=== PATIENT | female | born 1990 ===

== ENCOUNTER 2020-12-27 09:24 | Outpatient (REF) | payer OTHER, SELFPAY ==
[2020-12-27 10:06] LABS: Hematocrit 40.4 % (37.0-47.0); Hemoglobin 12.7 g/dl (12.0-16.0); Mean Corpuscular HGB Conc 31.4 g/dl (31.0-35.0); Mean Corpuscular Hemoglobin 28.3 pg (27.0-33.0); Mean Corpuscular Volume 90.2 fL (80.0-98.0); Mean Platelet Volume 9.8 fL (9.4-12.3); Platelet Count 347 X10*3/uL (160-400); Red Blood Count 4.48 X10*6/uL (4.20-5.50); Red Cell Distribution Width 15.4 % (11.0-16.0); White Blood Count 6.2 X10*3/uL (4.8-10.8)
[2020-12-27 10:30] LABS: Alanine Aminotransferase 13 U/L (0-31); Albumin Level 4.3 g/dL (3.5-5.0); Alkaline Phosphatase 60 U/L (39-117); Anion Gap 10 (12-20); Aspartate Amino Transferase 12 U/L (5-31); Bilirubin Total 0.5 mg/dL (0.0-1.0); Blood Urea Nitrogen 14 mg/dL (9-16); Calcium 9.7 mg/dL (8.4-10.2); Carbon Dioxide 30 mmol/L (22-29); Chloride 104 mmol/L (96-108); Cholesterol 182 mg/dL; Estimated Glomerular Filt Rate > 60; Glucose Fasting 117 mg/dL (60-99); HDL Cholesterol 64 mg/dL; LDL Cholesterol Calculated 107 mg/dl; Potassium 4.4 mmol/L (3.3-5.1); Sodium 140 mmol/L (135-145); Total Protein 7.6 g/dL (6.5-8.0); Triglycerides 57 mg/dL
[2020-12-27 10:50] LABS: TSH reflex Free T4 1.15 uIU/mL (0.32-4.0)
[2020-12-27 11:23] LABS: Creatinine Urine 207.24 mg/dL; Microalbum/Creatinine Ratio Ur 15.4 ug/mg cr
== END 2020-12-27 09:25 | disposition home or self-care (01) ==
LOC: HO.LAB 09:24
PROVIDERS: PCP Internal Medicine; Visit Provider Physician Assistant
DX: E11.65 Type 2 diabetes mellitus with hyperglycemia (principal); I10 Essential (primary) hypertension
CPT/HCPCS: 36415; 80053; 80061; 82043; 84443; 85027

== ENCOUNTER 2021-07-04 09:14 | Outpatient (REF) | payer OTHER, SELFPAY ==
[2021-07-04 09:53] LABS: Hematocrit 39.6 % (37.0-47.0); Hemoglobin 12.6 g/dl (12.0-16.0); Mean Corpuscular HGB Conc 31.8 g/dl (31.0-35.0); Mean Corpuscular Hemoglobin 28.7 pg (27.0-33.0); Mean Corpuscular Volume 90.2 fL (80.0-98.0); Mean Platelet Volume 9.8 fL (9.4-12.3); Platelet Count 317 X10*3/uL (160-400); Red Blood Count 4.39 X10*6/uL (4.20-5.50); Red Cell Distribution Width 14.6 % (11.0-16.0); White Blood Count 6.4 X10*3/uL (4.8-10.8)
[2021-07-04 10:24] LABS: Alanine Aminotransferase 13 U/L (0-31); Albumin Level 4.1 g/dL (3.5-5.0); Alkaline Phosphatase 57 U/L (39-117); Anion Gap 11 (12-20); Aspartate Amino Transferase 12 U/L (5-31); Bilirubin Total 0.5 mg/dL (0.0-1.0); Blood Urea Nitrogen 13 mg/dL (9-16); Calcium 10.3 mg/dL (8.4-10.2); Carbon Dioxide 29 mmol/L (22-29); Chloride 105 mmol/L (96-108); Cholesterol 165 mg/dL; Estimated Glomerular Filt Rate > 60; Glucose Fasting 101 mg/dL (60-99); HDL Cholesterol 55 mg/dL; LDL Cholesterol Calculated 100 mg/dl; Potassium 4.3 mmol/L (3.3-5.1); Sodium 141 mmol/L (135-145); Total Protein 7.3 g/dL (6.5-8.0); Triglycerides 53 mg/dL
[2021-07-04 10:50] LABS: TSH reflex Free T4 1.11 uIU/mL (0.32-4.0)
[2021-07-04 10:59] LABS: Creatinine Urine 143.09 mg/dL; Microalbum/Creatinine Ratio Ur 6.2 ug/mg cr
== END 2021-07-04 09:15 | disposition home or self-care (01) ==
LOC: HO.LAB 09:14
PROVIDERS: PCP Physician Assistant; Visit Provider Physician Assistant
DX: I10 Essential (primary) hypertension (principal); E11.65 Type 2 diabetes mellitus with hyperglycemia
CPT/HCPCS: 36415; 80053; 80061; 82043; 84443; 85027

== ENCOUNTER 2022-04-08 10:24 | Outpatient (REF) | payer OTHER, SELFPAY ==
[2022-04-08 11:21] LABS: Hematocrit 40.2 % (37.0-47.0); Hemoglobin 12.8 g/dl (12.0-16.0); Mean Corpuscular HGB Conc 31.8 g/dl (31.0-35.0); Mean Corpuscular Hemoglobin 28.8 pg (27.0-33.0); Mean Corpuscular Volume 90.3 fL (80.0-98.0); Mean Platelet Volume 9.9 fL (9.4-12.3); Platelet Count 380 X10*3/uL (160-400); Red Blood Count 4.45 X10*6/uL (4.20-5.50); Red Cell Distribution Width 14.7 % (11.0-16.0); White Blood Count 7.7 X10*3/uL (4.8-10.8)
[2022-04-08 11:56] LABS: Alanine Aminotransferase 9 U/L (0-31); Albumin Level 4.4 g/dL (3.5-5.0); Alkaline Phosphatase 68 U/L (39-117); Anion Gap 14 (12-20); Aspartate Amino Transferase 10 U/L (5-31); Bilirubin Total 0.8 mg/dL (0.0-1.0); Blood Urea Nitrogen 13 mg/dL (9-16); Calcium 9.9 mg/dL (8.4-10.2); Carbon Dioxide 28 mmol/L (22-29); Chloride 104 mmol/L (96-108); Cholesterol 186 mg/dL; Estimated Glomerular Filt Rate > 60; Glucose Fasting 103 mg/dL (60-99); HDL Cholesterol 53 mg/dL; LDL Cholesterol Calculated 115 mg/dl; Potassium 4.2 mmol/L (3.3-5.1); Sodium 142 mmol/L (135-145); Total Protein 7.5 g/dL (6.5-8.0); Triglycerides 91 mg/dL
[2022-04-08 12:15] LABS: TSH reflex Free T4 0.86 uIU/mL (0.32-4.0)
== END 2022-04-08 10:25 | disposition home or self-care (01) ==
LOC: HO.LAB 10:24
PROVIDERS: PCP Physician Assistant; Visit Provider Physician Assistant
DX: E11.65 Type 2 diabetes mellitus with hyperglycemia (principal)
CPT/HCPCS: 36415; 80053; 80061; 84443; 85027

== ENCOUNTER 2022-09-29 09:59 | Outpatient (AMB) | payer OTHER, SELFPAY ==
--- NOTE | 2022-09-29 10:05 | A.OFFVIS_ITS ---
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 Capacitor Tester Required: Yes Capacitor Tester Language: Continuous Improvement Black Belt Name: april Accompanied by: Self / Same As Patient Allergies aspirin Allergy (Verified 09/29/22 10:16) closed throat and itchy eyes Medication List - Last Reconciled 09/29/22 by Lolly Potts CNM hydroxyzine HCl 10 mg PO BEDTIME 15 days losartan 50 mg PO DAILY 90 days miscellaneous medical supply (Blood Pressure Cuff) As directed pioglitazone (Actos) 30 mg PO DAILY 90 days HPI 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 HPI Details 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 she says she has been referred a few times from her primary doctor but she has been nervous about coming she had 1 gynecological exam many many years ago in [place] when she had an ovarian cyst and and then she needed surgery to remove the cyst she has slightly irregular periods she has diabetes which she says is better controlled now with the medication she is taking 1 pill a day and she is also taking medication for high blood pressure she tells me that her primary care provider told her that the most important thing she can do is lose weight and she has been working hard on it by trying to control her portions and sometimes do exercise and she has lost from about 227 lb at her highest down to 190 range today. She does keep track of her periods and she said her last menses was on August 24 the previous 1 came on July 20 and previous to that May to than previous to that May 01 and previous to that March 23 she was concerned because they were done coming on the same date every month but they are coming somewhat regularly though sometimes prolonged cycles. I did review the range of this and also she tells me on questioning that she has always had increased facial and body hair and acne. She has had diabetes for many many years. She moved here from [place] 2 years ago. She also tells me that her mother had breast cancer a but she is fine now but she was told in [place] that she should have mammograms starting at age 28 so she had 1 in [place] but when she discuss this with her primary care provider and he referred her firm mammogram here they told her that they would not do it because she did not need it here so that she would be starting them when she is age 38. So she only had the 1 mammogram in [place] that was normal she does do regular breast exams. 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 Lives with her brother and another relative. she is not sexually active and does not have a partner. [facility] Medical History (Updated 09/29/22 @ 11:36 by Lolly Potts CNM) History of breast cancer History of ovarian cyst Surgical History No pertinent past surgical history Family History Mother History of breast cancer, Onset Age: 60 History of diabetes mellitus, type II Father Family history of high cholesterol Social History Housing: House Alcohol intake: current Alcohol intake frequency: holidays/special occasions only Patient Tobacco Use Status: Never used Tobacco e-Cigarette/Vaping Use: Never Used Second Hand Smoke Exposure: No service: No Current occupational status: employed 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 (Patient has lost about 30 lb from her efforts to become healthier General: healthy appearing, comfortable, no acute distress, well developed and alert Nutritional Appearance: average body habitus and overweight Orientation/consciousness: patient oriented x3 Limitations: no limitations HEENT Head: Yes normocephalic Neck Neck: Yes normal visual inspection Chest Chest palpation & inspection: normal inspection of the chest Breast/axilla inspection: normal inspection of the breasts and normal inspection of the axillae Breast/axilla palpation: normal palpation of the breasts and normal palpation of the axillae Resp Effort & Inspection: normal respiratory effort GI Inspection: Yes normal to inspection, No Abdominal wall edema and No distended Palpation (GI): Soft to palpation and nontender Other: normal insurance agent exam. Patient told me about a bump that she feels on her left labia underneath the mucosal membrane that is been there for couple of years at least. It does not really bother her but she is curious about it. Labia are within normal limits with the exception of this small sub mucosal firm swelling that feels like a collection of varicose veins. vagina is pink and moist cervix is nulliparous pink moist midposition to posterior and uterus is small anteverted nontender adnexa nontender not enlarged good tone. mucus is white with slight curdy appearance but patient denies vaginal itching. General: Yes bladder normal to palpation External Female Exam: normal external appearance and normal appearance of the urethra Speculum Exam - Vagina: normal appearance of the vagina, normal palpation and normal vaginal discharge Speculum Exam - Cervix: normal appearance of the cervix, normal palpation and nontender Bimanual exam- vagina & uterus: normal bimanual exam, normal palpation, uterine size normal, bladder normal to palpation, consistency normal, normal palpation, uterine mobility normal, uterine shape normal, No Cervical tenderness present, non-tender and no cervical motion tenderness Bimanual Exam- Adnexa, other: normal adnexae, no masses, normal and No adnexal tenderness Neuro General: patient oriented x3 Assessment & Plan Assessment & Plan (1) Family history of breast cancer: Code(s): Z80.3 - Family history of malignant neoplasm of breast (2) Family history of breast cancer in first degree relative: Code(s): Z80.3 - Family history of malignant neoplasm of breast (3) Cervical cancer screening: Comment: 1st Pap in Located within [facility] done 09/29/2022. Code(s): Z12.4 - Encounter for screening for malignant neoplasm of cervix (4) Type 2 diabetes mellitus: Code(s): E11.9 - Type 2 diabetes mellitus without complications Qualifiers: Diabetes mellitus skilled nursing insulin use: without petroleum terminal plant operator use Diabetes mellitus complication status: with hyperglycemia Qualified Code(s): E11.65 - Type 2 diabetes mellitus with hyperglycemia (5) HTN (hypertension): Code(s): I10 - Essential (primary) hypertension Qualifiers: Hypertension type: essential hypertension Qualified Code(s): I10 - Essential (primary) hypertension (6) Female hirsutism: Code(s): L68.0 - Hirsutism (7) History of ovarian cyst: Code(s): Z87.42 - Personal history of other diseases of the female genital tract Plan -----Discussed in this visit the following: healthy balanced diet, regular and consistent exercise, getting recommended health screens, doing the best she can for her particular health concerns, kegel exercises, pap smear screening and followup recommendations, mammography screening and SBE, normal changes in cycles in her life stage--- .Discussed in general terms the challenges of obesity and challenges for her health and efforts she is engaging in to manage this including dietary changes water intake attention to sleep inclusion of a regular exercise have it and dealing with the may need stressors of life that can contribute to obesity in general. Encouraged her to continue in all have her best efforts ---Discussed PCOS in general and specifically about the interplay of the abnormal hormonal milieu related to being overweight, with the elevations of many hormone levels, including testosterone and estrogen, as well as others that contribute to cycles that are anovulatory and therefore prolonged, and when periods do come they come very heavy, and can contribute to lots of cramping, with passage of clots and anemia. Discussed the common symptoms related to the elvated hormonal levels, including increased facial hair, male pattern hair thinning, acne, and increased central abdominal girth. Discussed the interplay with difficulty getting when desired, but still possible, and therefore the need to contracept as appropriate and when needed. Discussed the role of weight loss as the primary, most important, and most likely to succeed, intervention, in achieving healthier status as regards PCOS, and ovulatory regular cycles. Additionally the very important relationship to elevated insulin levels, and blood sugars, and diabetes as well as other metabolic syndromes related to this was discussed. discussed that since she already has diabetes and hypertension for many years and her history of ovarian cyst and her is symptoms of increased body hair and acne and the obesity she probably has PCOS but she is doing the most important thing she can do by managing her medical conditions really well and working very hard and successfully and carefully by changing her diet and losing the weight and that that is that the absolute best thing she can do for her health long- term. Discussed also with the issue of breast cancer screening she says her primary care provider did already try to send her for mammogram here because of her maternal history in because she was told in [place] that she had to start scans at age 28. But she was told at the [facility] that it would not be done here until later. So since referral for that has already occurred I will not repeat that effort. Also discussed that her periods may become more regular as she continues to lose the weight. Also discussed that if she should start to think about becoming sexually active or become in a relationship with someone that 1st of all condoms are the best thing to help protect from infection but also if she wanted to discuss control methods she could be seen at any time. Orders: Orders Bacterial Vaginosis Panel Today Z12.4 - Encounter for screening for malignant neoplasm of cervix CT NG by PCR Today Z00.00 - Encounter for general adult medical examination without abnormal findings Pap Smear Today Z12.4 - Encounter for screening for malignant neoplasm of cervix Coding Level of Care Code New Pt Prev Care 18-39yr([id number] Diagnoses Family history of breast cancer Z80.3 Family history of breast cancer in first degree relative Z80.3 Cervical cancer screening Z12.4 Type 2 diabetes mellitus E11.65 Diabetes mellitus skilled nursing insulin use: without skilled nursing use Diabetes mellitus complication status: with hyperglycemia HTN (hypertension) I10 Hypertension type: essential hypertension Female hirsutism L68.0 History of ovarian cyst Z87.42
[2022-09-29 10:14] VITALS: BP 138/84; BMI 27.1
== END 2022-09-29 11:25 | disposition home or self-care (01) ==
LOC: HO.HWS 09:59
PROVIDERS: PCP Physician Assistant; Visit Provider Advanced Practice Midwife
DX: Z01.419 Encounter for gynecological examination (general) (routine) without abnormal findings (principal); Z80.3 Family history of malignant neoplasm of breast; E11.65 Type 2 diabetes mellitus with hyperglycemia; I10 Essential (primary) hypertension; L68.0 Hirsutism; Z87.42 Personal history of other diseases of the female genital tract
CPT/HCPCS: 99385

== ENCOUNTER 2022-09-29 09:59 | Outpatient (REF) | payer OTHER, SELFPAY ==
[2022-09-30 04:24] LABS: CT PCR NOT DETECTED (Not Detect.); NG PCR NOT DETECTED (Not Detect.)
[2022-09-30 12:50] LABS: BV Int Neg Control Negative (Negative); BV Int Pos Control Positive (Positive)
[2022-10-10 04:38] LABS: HPV 16 RNA NOT DETECTED (NOT DETECTED); HPV mRNA E6/E7 rflx Detected (Not Detected)
== END 2022-09-29 10:00 | disposition home or self-care (01) ==
LOC: HO.LNP 09:59
PROVIDERS: PCP Physician Assistant; Visit Provider Advanced Practice Midwife
DX: Z01.419 Encounter for gynecological examination (general) (routine) without abnormal findings (principal); E11.65 Type 2 diabetes mellitus with hyperglycemia; I10 Essential (primary) hypertension; L68.0 Hirsutism; Z87.42 Personal history of other diseases of the female genital tract; Z79.899 Other long term (current) drug therapy; Z80.3 Family history of malignant neoplasm of breast
CPT/HCPCS: 0353U; 87480; 87510; 87624; 87625; 87660; 88142

== ENCOUNTER 2022-11-06 09:55 | Outpatient (AMB) | payer OTHER, SELFPAY ==
[2022-11-06 10:12] VITALS: BP 138/90; PULSE 88; RESP 16; O2SAT 98; BMI 26.3
--- NOTE | 2022-11-06 10:12 | A.OFFPC_ITS ---
Vital Signs 11/06/22 10:12 Height 5 ft 11 in Weight 188 lb 4 oz BMI 26.3 BP 138/90 H Blood Pressure Location Lt brachial Position Sitting Respiration 16 Pulse 88 Pulse Source Pulse Oximeter Pulse Oximetry (%) 98 Oxygen Delivery Method Room Air Intake Visit Reasons: f/u dm/ HTN Intake Note: Patient is here to follow up on DMII and HTN. Door To Door Selling Distributor Required: Yes Door To Door Selling Distributor Language: Wallisian Accompanied by: Self / Same As Patient Allergies aspirin Allergy (Verified 11/06/22 10:33) closed throat and itchy eyes Medication List - Last Reconciled 11/06/22 by Mario Mack PA-C hydroxyzine HCl 10 mg PO BEDTIME 15 days losartan 25 mg PO DAILY miscellaneous medical supply (Blood Pressure Cuff) As directed pioglitazone (Actos) 30 mg PO DAILY 90 days Tobacco use date assessed: 05/04/22 Dental Screening Dental Screen Date: 11/06/22 Did you have a dental visit in the last 12 months?: Yes Did you have a dental problem in the last 6 months where you did not have access to dental care?: No Was dental information given to patient?: Patient has dentist HPI f/u dm/ HTN HPI Details Patient is a 32-y ear-old female her e today for a foll ow-up visitm, . .? Patient is Spanis h-speaking only to which we have use d a remote silver buffer josiah renteria this visit. ? Alexis westfall has a past m edical history sig nificant for to 2 diabetes ,HTN,? fa sal history of br east cancer. .. DMII:? Does check her Blood sugar at home seldomly and report blood suga rs 110s to 120s.? Most recent fastin g blood sugar acce ptable Does see an eye doctor annual ly. We have noted more weight loss. Today's A1c of 5. 9 from 6.2. Will continue current d ose of Actos 30 mg . .. HTN:? Blood pressure slightly elevated today in office.? Denies an y headaches, chest discomfort, heada ches or vision iss ues. Patient hattie snow on losartan 5 0 mg. Does not ch nicolasa her blood pres sures at home. Ad jessica did start mauro cking her blood pr essures at home to ensure normal ezekiel dings. .. .. F amily history pop st cancer:? She re ports her mother w as diagnosed of br east cancer those unclear what age s he was diagnosed.? She reports getti ng a mammogram whi [place] in [place] which was negative .? Unclear at what age her mother wa s diagnosed with b reast cancer .. 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 Girish Ibrahim, Patito Beasley, Mike Monroy and colleagues, with an educational miguel angel from [employer]. Review of Systems Const Denies headache(s) Eyes Denies loss of vision ENT Denies vertigo, Denies dizziness, Denies headache(s) and Denies sore throat Card Denies chest pain, Denies leg edema and Denies lightheadedness Resp Denies cough, Denies hemoptysis and Denies wheezing GI Denies abdominal pain, Denies melena, Denies constipation, Denies diarrhea and Denies vomiting Denies urinary frequency, Denies dysuria and Denies urinary urgency Musc Denies arthralgias, Denies joint swelling, Denies numbness and Denies tingling Neuro Denies Abnormal speech present, Denies behavioral changes, Denies vertigo, Denies dizziness, Denies headache(s), Denies loss of vision, Denies memory loss, Denies numbness and Denies tingling Psych Denies anxiety, Denies behavioral changes, Denies depression, Denies memory loss and Denies panic attacks Jono/Lymph Denies easy bleeding and Denies easy bruising Aller/Immun Denies wheezing Physical exam (Primary Care) Vital Signs: Last Vital Signs Pulse 88 11/06/22 10:12 Resp 16 11/06/22 10:12 BP 138/90 H 11/06/22 10:12 Pulse Ox 98 11/06/22 10:12 Oxygen Delivery Method Room Air 11/06/22 10:12 BMI result Body Mass Index 26.3 Tobacco/Smoking Status: Tobacco use Status Tobacco use date assessed 05/04/22 11/06/22 10:16 Patient Tobacco Use Status Never used Tobacco 11/06/22 10:16 e-Cigarette/Vaping Use Never Used 11/06/22 10:16 Thrive Assessment: Date of Thrive Assessment Date Thrive assessed 05/04/22 11/06/22 10:16 Const General: healthy appearing, no acute distress, alert and awake Nutritional Appearance: well nourished Orientation/consciousness: oriented to person, oriented to place and oriented to time HENMT Ears: TM's normal bilaterally General nose exam: Normal nasal mucous membranes and turbinates present Eyes Conjunctivae: conjunctivae normal Sclerae: sclerae normal Pupils: Equal, round and reactive pupils present Neck Neck: Yes no lymphadenopathy and Yes no JVD Thyroid: Thyroid normal Carotids: no bruits Resp Effort & Inspection: normal respiratory effort and not tachypneic Auscultation: no crackles, no rales, no rhonchi and no wheezes Cardio Rate: regular rate Rhythm: regular rhythm Heart sounds: no murmurs and normal S1 and S2 GI Palpation (GI): Soft to palpation, nontender, no hepatomegaly and no splenomegaly Auscultation: normal bowel sounds Skin General skin exam: no rashes or lesions noted and dry skin Neuro General: oriented to person, oriented to place and oriented to time Cranial nerves: Yes Equal, round and reactive pupils present Speech: No Abnormal speech present Gait exam (Neuro): Normal gait present Motor exam (neuro): no tremor noted Extrem Right upper extremity: full ROM Left upper extremity: full ROM Right lower extremity: full ROM; no edema Left lower extremity: full ROM; no edema Psych Mental Status: mental status grossly normal Speech and movement: Normal speech and movement present Affect: normal affect Attitude: cooperative Thought process: Normal thought process present Results AMB Hemoglobin A1c AMB Hemoglobin A1c 5.9 % Last Edit by LACEY Maravilla on 11/06/22 10:37 Assessment and Plan Assessment & Plan (1) HTN (hypertension): Code(s): I10 - Essential (primary) hypertension Qualifiers: Hypertension type: essential hypertension Qualified Code(s): I10 - Essential (primary) hypertension Plan: Blood pressure today in office slightly elevated. Patient continues on losartan 50 mg. Otherwise is asymptomatic without headaches, chest discomforts or syncopal episodes. Advised on monitoring blood pressure at home as has suspect there is a white coat hypertension element tear. Goal blood pressure to be below 140/90 (2) Type 2 diabetes mellitus: Code(s): E11.9 - Type 2 diabetes mellitus without complications Qualifiers: Diabetes mellitus complication status: with hyperglycemia Diabetes mellitus jail insulin use: without termite helper use Qualified Code(s): E11.65 - Type 2 diabetes mellitus with hyperglycemia Plan: Patient's type 2 diabetes well controlled with current dose of Actos at 30 mg. Will continue current dose A1c to remain below 6.5 Orders: Orders AMB Hemoglobin A1c Today E11.9 - Type 2 diabetes mellitus without complications Medications: New losartan 25 mg PO DAILY 90 days 90 tabs 2RF I10 - Essential (primary) hyper tension Refilled pioglitazone (Actos) 30 mg PO DAILY 90 days 90 tabs 2RF E11.65 - Type 2 diabetes mellitus with hyperglycemia Coding Level of Care Code Est Pt Level 4 (59011) Diagnoses Essential hypertension I10 Hypertension type: essential hypertension Type 2 diabetes mellitus with hyperglycemia, without long-term current use of insulin E11.65 Diabetes mellitus complication status: with hyperglycemia Diabetes mellitus termite helper insulin use: without jail use
== END 2022-11-06 10:46 | disposition home or self-care (01) ==
PROVIDERS: PCP Physician Assistant; Visit Provider Physician Assistant
DX: I10 Essential (primary) hypertension (principal); E11.65 Type 2 diabetes mellitus with hyperglycemia; E11.9 Type 2 diabetes mellitus without complications
CPT/HCPCS: 83036; 99214

== ENCOUNTER 2022-11-06 10:54 | Outpatient (REF) | payer OTHER, SELFPAY ==
[2022-11-06 11:54] LABS: Hemoglobin 13.1 g/dl (12.0-16.0); Mean Corpuscular HGB Conc 32.8 g/dl (31.0-35.0); Mean Corpuscular Hemoglobin 29.2 pg (27.0-33.0); Mean Corpuscular Volume 89.3 fL (80.0-98.0); Mean Platelet Volume 9.7 fL (9.4-12.3); Platelet Count 337 X10*3/uL (160-400); Red Blood Count 4.48 X10*6/uL (4.20-5.50); Red Cell Distribution Width 14.9 % (11.0-16.0); White Blood Count 6.8 X10*3/uL (4.8-10.8)
[2022-11-06 12:09] LABS: Estimated Average Glucose 108 mg/dL; Hemoglobin A1c % 5.4 % (<6.0)
[2022-11-06 12:30] LABS: Alanine Aminotransferase 6 U/L (0-31); Albumin Level 4.3 g/dL (3.5-5.0); Alkaline Phosphatase 51 U/L (39-117); Anion Gap 10 (12-20); Aspartate Amino Transferase 10 U/L (5-31); Bilirubin Total 0.9 mg/dL (0.0-1.0); Blood Urea Nitrogen 13 mg/dL (9-16); Calcium 9.8 mg/dL (8.4-10.2); Carbon Dioxide 27 mmol/L (22-29); Chloride 108 mmol/L (96-108); Cholesterol 167 mg/dL (<200); Estimated Glomerular Filt Rate > 60; Glucose Fasting 92 mg/dL (60-99); HDL Cholesterol 55 mg/dL (>40); LDL Cholesterol Calculated 100 mg/dL (<100); Potassium 3.9 mmol/L (3.3-5.1); Sodium 141 mmol/L (135-145); Total Protein 7.9 g/dL (6.5-8.0); Triglycerides 64 mg/dL (<150)
[2022-11-06 12:47] LABS: TSH reflex Free T4 0.72 uIU/mL (0.32-4.0)
[2022-11-06 14:47] LABS: Microalbum/Creatinine Ratio Ur 4.9 ug/mg cr (<30)
== END 2022-11-06 10:55 | disposition home or self-care (01) ==
LOC: HO.LAB 10:54
PROVIDERS: PCP Physician Assistant; Visit Provider Physician Assistant
DX: E11.65 Type 2 diabetes mellitus with hyperglycemia (principal); Z13.220 Encounter for screening for lipoid disorders; Z13.29 Encounter for screening for other suspected endocrine disorder
CPT/HCPCS: 36415; 80053; 80061; 82043; 82570; 83036; 84443; 85027

== ENCOUNTER 2022-12-11 11:39 | Outpatient (AMB) | payer OTHER, SELFPAY ==
--- NOTE | 2022-12-11 11:45 | A.OFFVIS_ITS ---
Intake Vital Signs 12/11/22 11:54 Height 5 ft 11 in Weight 187 lb 6.287 oz BMI 26.1 BP 130/84 Intake Visit Reasons: COLPO Allergies aspirin Allergy (Verified 11/06/22 10:33) closed throat and itchy eyes PFSH Medical History History of breast cancer History of ovarian cyst Surgical History No pertinent past surgical history Family History Mother History of breast cancer, Onset Age: 60 History of diabetes mellitus, type II Father Family history of high cholesterol Social History Housing: House Alcohol intake: current Alcohol intake frequency: holidays/special occasions only Patient Tobacco Use Status: Never used Tobacco e-Cigarette/Vaping Use: Never Used Second Hand Smoke Exposure: No service: No Current occupational status: employed 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 Cognitive needs: No Hearing needs: No Vision needs: Yes (glasses) Office Procedures Colposcopy Before the procedure was started discussed with the patient the procedure, alternatives & all the risks associated with the procedure (bleeding, infection, injury to vagina, bladder, vessels, possible need for transfusion with all its risks) then patient signed the consent Pap smear = LSIL/HPV pause Urine test done in the office was negative Speculum inserted, acetic acid used Colposcopy done Transformation zone seen, acetowhite lesions identified at 4+9+12+1 o?clock, cervical biopsies taken from 4+9+12+1 o?clock, ECC done afterwards. Vaginoscopy of the upper vagina showed no evidence of any aceto-white lesions Monsel solution used for hemostasis. The patient tolerated well . At the end the patient was instructed to call if temp>100.4, abdominal pain, n/v, bleeding; The patient was given the following instructions: nothing per vagina, no intercourse or bath tub use. All questions answered the patient verba lized understanding. Instructed the patient to make an appointment in 2 weeks for follow-up This note was generated with a voice recognition program. Some errors may have been overlooked during the review of this note. Sometimes these errors may affect the content or meaning of a given sentence. [id number] of cervix including upper vagina with biopsy and ECC Procedure code (CPT) selection complete Assessment & Plan Assessment & Plan (1) Dysplasia of cervix, low grade (GINO 1): Comment: HPV pause Code(s): N87.0 - Mild cervical dysplasia Orders: Orders AMB Colposcopy Today N87.0 - Mild cervical dysplasia Coding Level of Care Code Procedure Only Diagnoses Dysplasia of cervix, low grade (GINO 1) N87.0 CPT Codes Colposcopy - CPT: 76105-Vdlpvnifz of cervix including upper vagina with biopsy and ECC ([id number])
[2022-12-11 11:54] VITALS: BP 130/84; BMI 26.1
== END 2022-12-11 13:17 | disposition home or self-care (01) ==
LOC: HO.HWS 11:39
PROVIDERS: PCP Physician Assistant; Visit Provider Obstetrics & Gynecology
DX: N87.0 Mild cervical dysplasia (principal); Z32.02 Encounter for pregnancy test, result negative
CPT/HCPCS: 57454

== ENCOUNTER 2022-12-11 11:39 | Outpatient (REF) | payer OTHER, SELFPAY | END 2022-12-11 11:40 | disposition home or self-care (01) | LOC: HO.LNP 11:39 | PROVIDERS: PCP Physician Assistant; Visit Provider Obstetrics & Gynecology | DX: N87.0 Mild cervical dysplasia (principal) | CPT/HCPCS: 57454; 81025; 88305 ==

== ENCOUNTER 2022-12-22 10:27 | Outpatient (AMB) | payer OTHER, SELFPAY ==
--- NOTE | 2022-12-22 10:30 | MHC.PC.OV ---
Vital Signs 12/22/22 10:31 Height 5 ft 11 in Weight 183 lb 4 oz BMI 25.6 BP 126/66 Blood Pressure Location Lt brachial Position Sitting Intake Visit Reasons: HDF ~ Post hospital discharge FU Intake Note: Patient is here for hospital discharge follow up. Patient was discharged from [facility] on 11/18 to 11/21. Informed she pasted out on 11/30/22 at home but did not go to ER. Recycling Program Manager Required: Yes Recycling Program Manager Language: Senior Php Web Developer Name: Varun ([id number]) Information Interpreted: non-clinical & clinical Java Sql Developer: Not Required per policy Accompanied by: Self / Same As Patient Allergies ketorolac Allergy (Intermediate, Verified 12/22/22 10:37) Anaphylaxis aspirin Allergy (Verified 12/22/22 10:37) closed throat and itchy eyes Tobacco use date assessed: 12/22/22 Dental Screening Dental Screen Date: 12/22/22 Did you have a dental visit in the last 12 months?: Yes Did you have a dental problem in the last 6 months where you did not have access to dental care?: No Was dental information given to patient?: Patient has dentist HPI HPI Comments History of Present Illness Details 28-year-old female past medical history significant for hypertension, type 2 diabetes mellitus in the left knee pain. Patient of Ayden Mack PA-C. Patient presents today for hospital discharge follow-up from [facility] for subarachnoid bleed discharged on 11/21/2022. Patient had been standing in the elevator and had weakness bystanders told her that she had passed out and hit her head. Denied any prolonged confusion patient underwent extensive imaging in the emergency department CT of cervical, lumbar head, maxillofacial. Was found to have tiny parenchymal mole or subarachnoid bleed; likely subarachnoid bleed per radiologist. Patient was evaluated by Trauma surgery recommended a CTA to rule out aneurysmal disease. CTA of the head and neck showed no acute intracranial large vessel occlusion, no hemodynamically significant stenosis of the extracranial internal carotid or vertebral arteries.Trauma surgery signed off following this. Echocardiogram was obtained showed LV EF of 55-60% no valvular abnormalities and no regional wall motion abnormalities. Patient presents today with stating she had a recurrent syncopal episode on 11/30/2022 states she was at her home sitting down watching TV and she felt like her heart was racing and she felt shaky and passed out. Patient denies any chest pain. Patient denies any headaches, vision changes, denies any low blood sugar reading. Patient reports she did check her blood pressure at the time of feeling fatigued and passing out when it was 115. 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 Girish Ibrahim, Patito Beasley, Mike Monroy and colleagues, with an educational miguel angel from [employer]. Review of Systems Const Denies chills, Denies fatigue, Denies fever(s) and Denies poor appetite Eyes Denies no additional complaints ENT Reports Normal hearing present Card Denies chest pain, Denies syncope, Reports rapid heart rate, Denies dyspnea and Reports other (syncope) Resp Denies cough and Denies dyspnea GI Denies change in stool character, Denies constipation, Denies diarrhea, Denies nausea and Denies vomiting Denies urinary frequency, Denies dysuria and Denies urinary urgency Neuro Reports Normal hearing present, Denies confusion and Denies syncope Psych Denies confusion Endo Denies fatigue Physical exam (Primary Care) Vital Signs: Last Vital Signs BP 126/66 12/22/22 10:31 BMI result Body Mass Index 25.6 Tobacco/Smoking Status: Tobacco use Status Tobacco use date assessed 12/22/22 12/22/22 10:41 Patient Tobacco Use Status Never used Tobacco 12/22/22 10:30 e-Cigarette/Vaping Use Never Used 12/22/22 10:30 Thrive Assessment: Date of Thrive Assessment Date Thrive assessed 05/04/22 12/22/22 10:30 Const General: No confusion Orientation/consciousness: No confusion HENMT Head: Yes normocephalic and Yes atraumatic Eyes Conjunctivae: conjunctivae normal Chest Chest palpation & inspection: normal inspection of the chest Resp Effort & Inspection: normal respiratory effort Auscultation: clear to auscultation bilaterally, no crackles, no rhonchi and no wheezes Cardio Rate: regular rate Rhythm: regular rhythm Heart sounds: S1 normal heart sound present and S2 normal heart sound present GI Inspection: Yes normal to inspection General: Yes no CVA tenderness Back/Spine/Pelvis Back: no CVA tenderness Neuro General: No confusion Cranial nerves: Yes Normal hearing present Extrem General: No edema Office Procedures Flu Questionnaire Does the patient have a severe egg allergy?: No Does the patient have severe life threatening allergies?: No Does the patient have a fever or illness today?: No Has the patient ever had Guillain-[place] Syndrome?: No Has the patient ever had any past reaction to a flu shot?: No Immunizations flu vacc [id number] 6mos up(PF) 60 mcg(15 mcgx4)/0.5 mL IM syringe Performing Provider: OSCAR Bassett Performing Location: [facility] Administered by: MEGHNA Falcon on 12/22/22 10:48 Dose Route Admin Location Dispensed Lot Number Expiration Date [facility] [employer] Lead 0.5 mL IM Left Deltoid 0.5 mL [id number] 08/26/23 [id number] [employer] VIS Given Date VIS Provided VIS Publication Date 12/22/22 Single Vaccine 20 Eligibility Eligibility Date Funding Source Not [facility] Eligible 12/22/22 Private Assessment and Plan Assessment & Plan (1) Type 2 diabetes mellitus: Code(s): E11.9 - Type 2 diabetes mellitus without complications Qualifiers: Diabetes mellitus complication status: with hyperglycemia Diabetes mellitus director of critical care insulin use: without retirement use Qualified Code(s): E11.65 - Type 2 diabetes mellitus with hyperglycemia Plan: Continue on actos Hemoglobin A1c ordered. Patient educated to decrease the amount of carbohydrate intake such as pasta, bread, rice and potatoes are all sugar in addition to the sweet stuff. Remember that fruits are good but they also have sugar. (2) Syncope: Code(s): R55 - Syncope and collapse Plan: Given patient is experiencing recurrent episodes of syncope following heart racing 3 day Holter monitor ordered and referral inter to Cardiology for further evaluation. (3) Palpitations: Code(s): R00.2 - Palpitations Plan: See syncope plan. (4) HTN (hypertension): Code(s): I10 - Essential (primary) hypertension Qualifiers: Hypertension type: essential hypertension Qualified Code(s): I10 - Essential (primary) hypertension Plan: Continue on losartan 25 mg daily. Plan Follow-up in 2 months. Orders: Orders Influenza [id number] Immunization Today Z23 - Encounter for immunization Hemoglobin A1c Today E11.9 - Type 2 diabetes mellitus without complications ECG 3 day holter monitor Today R00.2 - Palpitations, R55 - Syncope and collapse Complete Blood Count Auto Diff Today Z13.0 - Encounter for screening for diseases of the blood and blood-forming organs and certain disorders involving the immune mechanism Comprehensive Met. Panel Today E11.9 - Type 2 diabetes mellitus without complications Referrals Cardiology Referral R00.2 - Palpitations, R55 - Syncope and collapse Coding Level of Care Code Est Pt Level 4 (49760) Diagnoses Type 2 diabetes mellitus with hyperglycemia, without long-term current use of insulin E11.65 Diabetes mellitus complication status: with hyperglycemia Diabetes mellitus director of critical care insulin use: without director of critical care use Syncope R55 Palpitations R00.2 Essential hypertension I10 Hypertension type: essential hypertension
[2022-12-22 10:31] VITALS: BP 126/66; BMI 25.6
== END 2022-12-22 11:07 | disposition home or self-care (01) ==
PROVIDERS: PCP Physician Assistant; Visit Provider Nurse Practitioner Family
DX: E11.65 Type 2 diabetes mellitus with hyperglycemia (principal); R55 Syncope and collapse; R00.2 Palpitations; I10 Essential (primary) hypertension; Z23 Encounter for immunization
CPT/HCPCS: 90471; 90686; 99214

== ENCOUNTER 2023-01-10 11:19 | Outpatient (AMB) | payer OTHER, SELFPAY ==
--- NOTE | 2023-01-10 11:20 | MHC.OFFVIS ---
Intake Vital Signs 01/10/23 11:23 Height 5 ft 11 in Weight 182 lb 15.739 oz BMI 25.5 BP 120/74 Intake Visit Reasons: colpo results Ammunition Storekeeper Required: Yes Ammunition Storekeeper Language: Cut Plug Packer Name: Krystina COFFMAN Information Interpreted: non-clinical & clinical Accompanied by: Self / Same As Patient Allergies ketorolac Allergy (Intermediate, Verified 01/10/23 11:24) Anaphylaxis aspirin Allergy (Verified 01/10/23 11:24) closed throat and itchy eyes Is last menstrual period known: Yes Last menstrual period: 12/21/22 HPI HPI Comments History of Present Illness Details Presenting post colpo for follow-up. The patient is doing well complaining of heavy menstrual cycles associated with pelvic cramping for the last 3 months. The pathology showed the following: A. Endocervix, curettage: Fragments of endocervical glands and squamous mucosa within normal limits; negative for squamous intraepithelial lesion. B. Cervix, 1:00 o'clock, biopsy: Squamous mucosa within normal limits; no endocervical component seen; negative for squamous intraepithelial lesion. C. Cervix, 4:00 o'clock, biopsy: Chronic cervicitis with reactive epithelial changes; negative for squamous intraepithelial lesion. D. Cervix, 9:00 o'clock, biopsy: Squamocolumnar mucosa within normal limits; negative for squamous intraepithelial lesion. E. Cervix, 12:00 o'clock, biopsy: Chronic cervicitis; negative for squamous intraepithelial lesion [facility] Medical History History of breast cancer History of ovarian cyst Surgical History No pertinent past surgical history Family History Mother History of breast cancer, Onset Age: 60 History of diabetes mellitus, type II Father Family history of high cholesterol Social History Housing: House Alcohol intake: current Alcohol intake frequency: holidays/special occasions only Patient Tobacco Use Status: Never used Tobacco e-Cigarette/Vaping Use: Never Used Second Hand Smoke Exposure: No service: No Current occupational status: employed 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 Cognitive needs: No Hearing needs: No Vision needs: Yes (glasses) Female Reproductive History Menstrual Date of last menstrual period: 12/21/22 Review of Systems Const All systems reviewed & are unremarkable except as noted in HPI and below Reports as per HPI and Reports no additional complaints GI Reports no additional complaints Reports no additional complaints Physical Exam Vital Signs: Last Vital Signs BP 120/74 01/10/23 11:23 BMI result Body Mass Index 25.5 Assessment & Plan Assessment & Plan (1) Dysplasia of cervix, low grade (GINO 1): Comment: HPV positive Colpo biopsy ECC negative Code(s): N87.0 - Mild cervical dysplasia Plan: Discussed with the patient the pathology results of the colposcopy biopsies & endocervical curettage ( negative). Discussed with the patient the sensitivity specificity, positive and negative predictive value in detecting cervical cancer in addition discussed the regression, persistence and progression rates. Recommended co-testing in 12 months, if cytology and or HPV are abnormal will proceed was colposcopy biopsy and endocervical curettage. Instructions given to the patient to schedule a co test appointment in 1 year. All questions answered the patient verbalized understanding. (2) Abnormal uterine bleeding (AUB): Code(s): N93.9 - Abnormal uterine and vaginal bleeding, unspecified Plan: UPT done in the office was negative. GC and chlamydia taken CBC, TSH, HCG, prolactin, and pelvic ultrasound ordered. Discussed with the patient the different causes of abnormal bleeding including thyroid disorders, uterine and ovarian pathology, endometrial hyperplasia, carcinoma and other potential causes. Discussed with the patient the work up including CBC (to r/o anemia), TSH, pelvic Ultrasound, endometrial biopsy to r/o endometrial pathology. All questions answered and the patient verbalized understanding. Instructed the patient to schedule an appointment for an endometrial biopsy in 2 weeks. Orders: Orders TSH reflex Free T4 Today N93.9 - Abnormal uterine and vaginal bleeding, unspecified HCG Quantitative Today N93.9 - Abnormal uterine and vaginal bleeding, unspecified Complete Blood Count no Diff Today N93.9 - Abnormal uterine and vaginal bleeding, unspecified Prolactin Today N93.9 - Abnormal uterine and vaginal bleeding, unspecified US pelvic and transvaginal Today N93.9 - Abnormal uterine and vaginal bleeding, unspecified Coding Level of Care Code Est Pt Level 3 (06241) Diagnoses Dysplasia of cervix, low grade (GINO 1) N87.0 Abnormal uterine bleeding (AUB) N93.9
[2023-01-10 11:23] VITALS: BP 120/74; BMI 25.5
== END 2023-01-10 11:38 | disposition home or self-care (01) ==
LOC: HO.HWS 11:19
PROVIDERS: PCP Physician Assistant; Visit Provider Obstetrics & Gynecology
DX: N87.0 Mild cervical dysplasia (principal); N93.9 Abnormal uterine and vaginal bleeding, unspecified; Z32.02 Encounter for pregnancy test, result negative
CPT/HCPCS: 99213

== ENCOUNTER 2023-01-10 11:19 | Outpatient (REF) | payer OTHER, SELFPAY | END 2023-01-10 11:20 | disposition home or self-care (01) | LOC: HO.LNP 11:19 | PROVIDERS: PCP Physician Assistant; Visit Provider Obstetrics & Gynecology | DX: N87.0 Mild cervical dysplasia (principal); N93.9 Abnormal uterine and vaginal bleeding, unspecified; Z71.2 Person consulting for explanation of examination or test findings | CPT/HCPCS: 81025; 99212 ==

== ENCOUNTER 2023-01-10 12:01 | Outpatient (REF) | payer OTHER, SELFPAY ==
[2023-01-10 13:40] LABS: Hematocrit 39.3 % (37.0-47.0); Hemoglobin 12.6 g/dl (12.0-16.0); Mean Corpuscular HGB Conc 32.1 g/dl (31.0-35.0); Mean Corpuscular Hemoglobin 29.2 pg (27.0-33.0); Mean Platelet Volume 10.1 fL (9.4-12.3); Platelet Count 334 X10*3/uL (160-400); Red Blood Count 4.32 X10*6/uL (4.20-5.50); White Blood Count 6.7 X10*3/uL (4.8-10.8)
[2023-01-10 15:16] LABS: HCG Quantitative < 2 mIU/mL
[2023-01-10 16:30] LABS: CT PCR NOT DETECTED (Not Detect.); NG PCR NOT DETECTED (Not Detect.)
[2023-01-12 03:33] LABS: Prolactin 6.8 ng/mL
== END 2023-01-10 12:02 | disposition home or self-care (01) ==
LOC: HO.LAB 12:01
PROVIDERS: PCP Physician Assistant; Visit Provider Obstetrics & Gynecology
DX: N93.9 Abnormal uterine and vaginal bleeding, unspecified (principal)
CPT/HCPCS: 0353U; 36415; 84146; 84443; 84702; 85027

== ENCOUNTER → 2023-01-12 11:23 | Outpatient (REF) | payer OTHER, SELFPAY ==
--- NOTE | 2023-01-12 11:35 | HM_ITS ---
Conclusion: 1. Patient was monitored for total period of 3 days 2. Baseline was normal sinus rhythm with average heart of 84 beats per minute 3. No significant pauses or arrhythmias noted 4. Patient reported to symptoms of shortness of breath correlating with normal sinus rhythm MTDD
== END ==
LOC: HO.CARD 11:23
PROVIDERS: PCP Physician Assistant; Visit Provider Nurse Practitioner Family
DX: R00.2 Palpitations (principal); R55 Syncope and collapse
CPT/HCPCS: 93242

== ENCOUNTER → 2023-01-12 11:35 | Outpatient (BNV) | payer OTHER, SELFPAY | PROVIDERS: PCP Physician Assistant; Visit Provider Internal Medicine Cardiovascular Disease | DX: R00.2 Palpitations (principal) | CPT/HCPCS: 93244 ==

== ENCOUNTER 2023-02-02 14:11 | Outpatient (REF) | payer OTHER, SELFPAY ==
--- NOTE | ~2023-02-02 | US_ITS ---
EXAM: Pelvic Ultrasound CLINICAL INDICATION: Abnormal bleeding COMPARISON: None available. TECHNIQUE: The pelvis was evaluated using transabdominal and transvaginal imaging. FINDINGS: The uterus measures 8.0 x 4.2 x 5.2 cm in longitudinal by AP by transverse dimension. The endometrial stripe measures 1.3 cm. There is an arcuate type uterus. Several prominent nabothian cysts are noted within the cervix. The left ovary measures approximately 3.9 x 3.4 x 3.5 cm and contains an approximately 2 cm cystic structure felt to represent a degenerating corpus luteum. The right ovary measures approximately 4.0 x 2.1 x 2.4 cm and is normal. There is a small amount of free fluid in the pelvis. US/US pelvic and transvaginal IMPRESSION: 1. Endometrial stripe measures 1.3 cm in thickness. Correlation with menstrual cycle recommended. 2. Small amount of free pelvic fluid.
== END 2023-02-02 14:12 | disposition home or self-care (01) ==
LOC: HO.US 14:11
PROVIDERS: PCP Physician Assistant; Visit Provider Obstetrics & Gynecology
DX: N93.9 Abnormal uterine and vaginal bleeding, unspecified (principal)
CPT/HCPCS: 76830; 76856

== ENCOUNTER 2023-02-13 12:53 | Outpatient (AMB) | payer OTHER, SELFPAY ==
[2023-02-13 12:56] VITALS: BP 152/90; PULSE 82; RESP 17; BMI 25.6
--- NOTE | 2023-02-13 12:56 | MHC.PC.OV ---
Vital Signs 02/13/23 12:56 Height 5 ft 11 in Weight 183 lb 8 oz BMI 25.6 BP 152/90 H Blood Pressure Location Lt brachial Position Sitting Respiration 17 Pulse 82 Pulse Source Palpation Intake Visit Reasons: 2 month f/u Watch Repair Person Required: Yes Watch Repair Person Language: Portuguese Accompanied by: Self / Same As Patient Allergies ketorolac Allergy (Intermediate, Verified 02/13/23 13:15) Anaphylaxis aspirin Allergy (Verified 02/13/23 13:15) closed throat and itchy eyes Medication List - Last Reconciled 02/13/23 by Mario Mack PA-C losartan 25 mg PO DAILY 90 days miscellaneous medical supply (Blood Pressure Cuff) As directed pioglitazone (Actos) 30 mg PO DAILY 90 days Tobacco use date assessed: 12/22/22 Dental Screening Dental Screen Date: 02/13/23 Did you have a dental visit in the last 12 months?: Yes Did you have a dental problem in the last 6 months where you did not have access to dental care?: No Was dental information given to patient?: Patient has dentist HPI 2 month f/u HPI Details Patient is a 33-year-old female here today for a follow-up visit . .? Patient is Portuguese-speaking only to which we have used a remote interpreter during this visit. ? Patient has a past medical history significant for to 2 diabetes ,HTN,? family history of breast cancer. Concerns--> reports having alot of trouble sleeping, has use melatonin which has not been effective. We did discuss trying other [id number] sleeping aids and patient agrees. She is not interested in any prescribed sleeping medication at this time. Syncopal episode--> Has had recent history of syncopal episodes and heart palpitations. Did have a syncopal episode resulting in head trauma and subarachnoid hemorrhage that was evaluated at [facility] trauma. CTA of head neck though any significant aneurysm or arterial stenosis. Of note she was found to have urethral stone and evidence of UTI, she was started on antibiotic for 5 days. Has been sent for Holter monitor which did show normal sinus rhythm. Has upcoming appointment with Cardiology in 05/15/2022 ..DMII:? Does check her Blood sugar at home seldomly and report blood sugars 90 to 110.? Most recent fasting blood sugar acceptable. Today's A1c of 5.6.. To prevent any events of hypoglycemia will discontinue Actos. Does see an eye doctor annually. . HTN:? Blood pressure slightly elevated today in office.? Denies any headaches, chest discomfort, headaches or vision issues. Patient continues on losartan 25 mg. Does not check her blood pressures at home. Advise did start checking her blood pressures at home to ensure normal readings. Laboratory Tests 11/06/22 11/06/22 01/10/23 11:13 11:33 12:29 Hemoglobin A1c % 5.4 Cholesterol 167 LDL Cholesterol, C alc 100 H TSH 0.60 Urine Microalbumin 18.0 PFSH Medical History History of breast cancer History of ovarian cyst Surgical History No pertinent past surgical history Family History Mother History of breast cancer, Onset Age: 60 History of diabetes mellitus, type II Father Family history of high cholesterol Social History Housing: House Alcohol intake: current Alcohol intake frequency: holidays/special occasions only Patient Tobacco Use Status: Never used Tobacco e-Cigarette/Vaping Use: Never Used Second Hand Smoke Exposure: No service: No Current occupational status: employed 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 Girish Ibrahim, Patito Beasley, Mike Monroy and colleagues, with an educational miguel angel from [employer]. Review of Systems Const Denies headache(s) Eyes Denies loss of vision ENT Denies vertigo, Denies dizziness, Denies headache(s) and Denies sore throat Card Denies chest pain, Denies leg edema and Denies lightheadedness Resp Denies cough, Denies hemoptysis and Denies wheezing GI Denies abdominal pain, Denies melena, Denies constipation, Denies diarrhea and Denies vomiting Denies urinary frequency, Denies dysuria and Denies urinary urgency Musc Denies arthralgias, Denies joint swelling, Denies numbness and Denies tingling Neuro Denies Abnormal speech present, Denies behavioral changes, Denies vertigo, Denies dizziness, Denies headache(s), Denies loss of vision, Denies memory loss, Denies numbness and Denies tingling Psych Denies anxiety, Denies behavioral changes, Denies depression, Denies memory loss and Denies panic attacks Jono/Lymph Denies easy bleeding and Denies easy bruising Aller/Immun Denies wheezing Physical exam (Primary Care) Vital Signs: Last Vital Signs Pulse 82 02/13/23 12:56 Resp 17 02/13/23 12:56 BP 152/90 H 02/13/23 12:56 BMI result Body Mass Index 25.6 Tobacco/Smoking Status: Tobacco use Status Tobacco use date assessed 12/22/22 02/13/23 12:58 Patient Tobacco Use Status Never used Tobacco 02/13/23 12:58 e-Cigarette/Vaping Use Never Used 02/13/23 12:58 Thrive Assessment: Date of Thrive Assessment Date Thrive assessed 05/04/22 02/13/23 12:58 Const General: healthy appearing, no acute distress, alert and awake Nutritional Appearance: well nourished Orientation/consciousness: oriented to person, oriented to place and oriented to time HENMT Ears: TM's normal bilaterally General nose exam: Normal nasal mucous membranes and turbinates present Eyes Conjunctivae: conjunctivae normal Sclerae: sclerae normal Pupils: Equal, round and reactive pupils present Neck Neck: Yes no lymphadenopathy and Yes no JVD Thyroid: Thyroid normal Carotids: no bruits Resp Effort & Inspection: normal respiratory effort and not tachypneic Auscultation: no crackles, no rales, no rhonchi and no wheezes Cardio Rate: regular rate Rhythm: regular rhythm Heart sounds: no murmurs and normal S1 and S2 GI Palpation (GI): Soft to palpation, nontender, no hepatomegaly and no splenomegaly Auscultation: normal bowel sounds Skin General skin exam: no rashes or lesions noted and dry skin Neuro General: oriented to person, oriented to place and oriented to time Cranial nerves: Yes Equal, round and reactive pupils present Speech: No Abnormal speech present Gait exam (Neuro): Normal gait present Motor exam (neuro): no tremor noted Extrem Right upper extremity: full ROM Left upper extremity: full ROM Right lower extremity: full ROM; no edema Left lower extremity: full ROM; no edema Psych Mental Status: mental status grossly normal Speech and movement: Normal speech and movement present Affect: normal affect Attitude: cooperative Thought process: Normal thought process present Results AMB Hemoglobin A1c AMB Hemoglobin A1c 5.6 % Last Edit by LACEY Maravilla on 02/13/23 13:39 Results Reviewed Results Reviewed: Laboratory Last Values Hgb A1c (Clinic) 5.6 % (4.0-6.0) 02/13/23 13:38 Assessment and Plan Assessment & Plan (1) HTN (hypertension): Code(s): I10 - Essential (primary) hypertension Qualifiers: Hypertension type: essential hypertension Qualified Code(s): I10 - Essential (primary) hypertension Plan: Blood pressure today in office slightly elevated. Patient continues on losartan 25 mg. Otherwise is asymptomatic without headaches, chest discomforts or syncopal episodes. Advised on monitoring blood pressure at home as has suspect there is a white coat hypertension element tear. Goal blood pressure to be below 140/90 (2) Type 2 diabetes mellitus: Code(s): E11.9 - Type 2 diabetes mellitus without complications Qualifiers: Diabetes mellitus complication status: with hyperglycemia Diabetes mellitus oysterman insulin use: without [facility] use Qualified Code(s): E11.65 - Type 2 diabetes mellitus with hyperglycemia Plan: Patient's type 2 diabetes well controlled. Today's A1c of 5.6. Will trial her being off of Actos and managing her diabetes with lifestyle modifications. Goal A1c is to remain below 6.0 (3) Palpitations: Code(s): R00.2 - Palpitations Plan: Will be following up with Cardiology in March 2023. Of note Holter monitor showing normal sinus rhythm. (4) Urinary stone: Code(s): N20.9 - Urinary calculus, unspecified Qualifiers: Urinary calculus location: ureter Qualified Code(s): N20.1 - Calculus of ureter Plan: Has resolved though led to an ER visit in November 2022. Orders: Orders Comprehensive [place]. Panel Fast 02/13/23 E11.65 - Type 2 diabetes mellitus with hyperglycemia Complete Blood Count no Diff 02/13/23 E11.65 - Type 2 diabetes mellitus with hyperglycemia AMB Hemoglobin A1c 02/13/23 E11.9 - Type 2 diabetes mellitus without complications Lipid Panel 02/13/23 E11.65 - Type 2 diabetes mellitus with hyperglycemia Medications: Discontinued pioglitazone (Actos) Discontinued Reason: Change Referral Type 30 mg PO DAILY 90 days 90 tabs 2RF E11.65 - Type 2 diabetes mellitus with hyperglycemia Coding Level of Care Code Est Pt Level 4 (10803) Diagnoses Essential hypertension I10 Hypertension type: essential hypertension Type 2 diabetes mellitus with hyperglycemia, without long-term current use of insulin E11.65 Diabetes mellitus complication status: with hyperglycemia Diabetes mellitus [facility] insulin use: without oysterman use Palpitations R00.2 Calculus of ureter N20.1 Urinary calculus location: ureter
== END 2023-02-13 13:40 | disposition home or self-care (01) ==
PROVIDERS: PCP Physician Assistant; Visit Provider Physician Assistant
DX: E11.9 Type 2 diabetes mellitus without complications (principal)
CPT/HCPCS: 83036; 99214

== ENCOUNTER 2023-04-09 13:52 | Outpatient (AMB) | payer OTHER, SELFPAY ==
--- NOTE | 2023-04-09 13:56 | MHC.OFFVIS ---
Intake Vital Signs 04/09/23 13:57 Height 5 ft 11 in Weight 185 lb 3.013 oz BMI 25.8 BP 148/100 H Blood Pressure Location Lt brachial Position Sitting Pulse 105 H Intake Visit Reasons: LENS HARDENER/O'Alice/Palpitations & Syncope Intake Note: NPV w/ EKG Cinder Man Required: Yes Cinder Man Language: Fire Captain Marine Name: [email or web address] [id number] Accompanied by: Self / Same As Patient Allergies ketorolac Allergy (Intermediate, Verified 04/09/23 13:59) Anaphylaxis aspirin Allergy (Verified 04/09/23 13:59) closed throat and itchy eyes Medication List - Last Reconciled 04/09/23 by Aashish Gomez MD losartan 25 mg PO DAILY 90 days miscellaneous medical supply (Blood Pressure Cuff) As directed HPI HPI Comments History of Present Illness Details Karsten is here for consultation regarding syncope. She states she is had passing out episodes for the last few years. She can go for several months with no issues and then had an episode when she passed out. Most recently in October of last year. At that time, she was admitted to [facility]. It appears that she was sitting in the elevator and certainly had some weakness and in some way she hit her head and passed out. Then found to have a tiny subarachnoid bleed. Then evaluated by Trauma surgery but no clear interventions at that time. Then it seems that she had an echocardiogram which was unremarkable. Eventually discharged home. She states she is had similar episodes even [place] many years ago. Prior to these episodes, she can sometimes feel very shaky but she does not have any history of seizures. Otherwise, no known cardiac problems including cardiomyopathy or in fact anything else along those lines. She is on the overweight side. However, over the last couple of years, she states she is already lost 40 lb or so even without trying. She used to be on medications but more recently on nothing. Her hemoglobin A1c also has normalized. She is also medications for hypertension. Borderline high blood pressure today. REPLACED BY [facility] Medical History (Updated 04/09/23 @ 14:16 by Aashish Gomez MD) History of ovarian cyst Surgical History No pertinent past surgical history Family History Mother History of breast cancer, Onset Age: 60 History of diabetes mellitus, type II Father Family history of high cholesterol Social History Housing: House Alcohol intake: current Alcohol intake frequency: holidays/special occasions only Patient Tobacco Use Status: Never used Tobacco e-Cigarette/Vaping Use: Never Used Second Hand Smoke Exposure: No service: No Current occupational status: employed 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 Cognitive needs: No Hearing needs: No Vision needs: Yes (glasses) Review of Systems Const All systems reviewed & are unremarkable except as noted in HPI and below Reports as per HPI and Reports no additional complaints Eyes Reports as per HPI and Denies no additional complaints ENT Denies no additional complaints and Reports as per HPI Card Reports as per HPI, Reports no additional complaints, Denies acrocyanosis, Denies chest pain, Denies leg edema, Denies lightheadedness, Denies palpitations and Denies dyspnea Resp Reports as per HPI, Denies no additional complaints and Denies dyspnea GI Reports as per HPI and Denies no additional complaints Reports as per HPI Musc Reports no additional complaints and Reports as per HPI Skin/Breast Reports system reviewed and no additional complaints, except as documented Neuro Reports no additional complaints and Reports as per HPI Psych Reports no additional complaints and Reports as per HPI Endo Reports no additional complaints, Reports as per HPI and Denies palpitations Jono/Lymph Reports no additional complaints and Reports as per HPI Aller/Immun Reports no additional complaints and Reports as per HPI Physical Exam Vital Signs: Last Vital Signs Pulse 105 H 04/09/23 13:57 BP 148/100 H 04/09/23 13:57 BMI result Body Mass Index 25.8 Const General: comfortable and no acute distress Orientation/consciousness: patient oriented x3 HEENT Other: Unremarkable Head: Yes normal to inspection Neck Neck: Yes normal visual inspection Chest Chest palpation & inspection: normal inspection of the chest Resp Auscultation: clear to auscultation bilaterally Cardio Palpation: normal PMI Heart sounds: S1 normal heart sound present, S2 normal heart sound present, no gallops, no murmurs and no rubs GI Palpation (GI): Soft to palpation Back/Spine/Pelvis Other: unremarkable Skin General skin exam: no rashes or lesions noted Neuro General: patient oriented x3 Extrem General: Yes normal to inspection Psych Mental Status: mental status grossly normal Office Procedures EKG Details: EKG today shows sinus tachycardia 105/Min; no significant ST-T changes and otherwise [place]remark[place] [id number], Complete Assessment & Plan Assessment & Plan (1) Syncope: Code(s): R55 - Syncope and collapse Plan Per EKG, no evidence of any long QT syndrome or Brugada or any form of arrhythmia inducing disorders. No evidence of heart blocks either. She had a Holter monitor recently which showed normal sinus rhythm only throughout. Echocardiogram at [facility] had shown LVEF of 55-60%, no wall motion abnormalities or valvular findings. Per [facility] imaging, tiny focus of high density in the right frontal lobe, thought to be either apparent cranial or subarachnoid bleed. CTA head showed no acute intracranial lesions. Carotid/vertebral arteries were also unremarkable. Overall, episodes of syncope versus seizure happening every few months but also symptom free for prolonged periods as well. No evidence of cardiac etiology for the same. Do not believe arrhythmias play a role. Unlikely hypotension is the cause either as it is actually on the higher side. No structural findings like hypertrophic cardiomyopathy. At this point, no cardiac interventions. It would be reasonable to get neurology assessment to evaluate for seizures. Hence referral made. Total time spent including review of data from [facility], counseling, documentation, coordination of care-50 minutes. Orders: Referrals Neurology Referral R56.9 - Unspecified convulsions Coding Level of Care Code New Pt Level 4 (03807) Diagnoses Syncope R55 CPT Codes EKG - CPT: 68951-[id number], Complete ([id number])
[2023-04-09 13:57] VITALS: BP 148/100; PULSE 105; BMI 25.8
== END 2023-04-09 14:32 | disposition home or self-care (01) ==
PROVIDERS: PCP Physician Assistant; Visit Provider Internal Medicine
DX: R55 Syncope and collapse (principal)
CPT/HCPCS: 93010; 99204

== ENCOUNTER → 2023-04-09 13:52 | Outpatient (BNVA) | payer OTHER, SELFPAY | PROVIDERS: PCP Physician Assistant; Visit Provider Internal Medicine | DX: R55 Syncope and collapse (principal) | CPT/HCPCS: 93005; 99202 ==

== ENCOUNTER 2023-05-08 09:09 | Outpatient (REF) | payer OTHER, SELFPAY ==
[2023-05-08 10:02] LABS: Hematocrit 39.2 % (37.0-47.0); Hemoglobin 12.7 g/dl (12.0-16.0); Mean Corpuscular HGB Conc 32.4 g/dl (31.0-35.0); Mean Corpuscular Hemoglobin 28.3 pg (27.0-33.0); Mean Corpuscular Volume 87.3 fL (80.0-98.0); Mean Platelet Volume 9.4 fL (9.4-12.3); Platelet Count 364 X10*3/uL (160-400); Red Blood Count 4.49 X10*6/uL (4.20-5.50); White Blood Count 8.5 X10*3/uL (4.8-10.8)
[2023-05-08 10:23] LABS: Alanine Aminotransferase 10 U/L (0-31); Albumin Level 4.3 g/dL (3.5-5.0); Alkaline Phosphatase 64 U/L (39-117); Anion Gap 11 (12-20); Aspartate Amino Transferase 11 U/L (5-31); Bilirubin Total 0.5 mg/dL (0.0-1.0); Blood Urea Nitrogen 13 mg/dL (9-16); Carbon Dioxide 30 mmol/L (22-29); Chloride 106 mmol/L (96-108); Cholesterol 193 mg/dL (<200); Estimated Glomerular Filt Rate > 60; Glucose Fasting 105 mg/dL (60-99); HDL Cholesterol 55 mg/dL (>40); LDL Cholesterol Calculated 123 mg/dL (<100); Potassium 3.6 mmol/L (3.3-5.1); Sodium 143 mmol/L (135-145); Total Protein 7.8 g/dL (6.5-8.0); Triglycerides 77 mg/dL (<150)
== END 2023-05-08 09:10 | disposition home or self-care (01) ==
LOC: HO.LAB 09:09
PROVIDERS: PCP Physician Assistant; Visit Provider Physician Assistant
DX: E11.65 Type 2 diabetes mellitus with hyperglycemia (principal)
CPT/HCPCS: 36415; 80053; 80061; 85027

== ENCOUNTER 2023-05-09 09:26 | Outpatient (AMB) | payer OTHER, SELFPAY ==
--- NOTE | 2023-05-09 09:39 | MHC.PC.OV ---
Vital Signs 05/09/23 09:40 Height 5 ft 11 in Weight 185 lb 2 oz BMI 25.8 BP 142/98 H Blood Pressure Location Lt brachial Position Sitting Respiration 16 Pulse 84 Pulse Source Pulse Oximeter Pulse Oximetry (%) 99 Oxygen Delivery Method Room Air Intake Visit Reasons: Annual Exam Intake Note: Patient is here today for a physical. Patient is here today for a physical. Product Management Specialist Required: No Accompanied by: Self / Same As Patient Allergies ketorolac Allergy (Intermediate, Verified 05/09/23 10:05) Anaphylaxis aspirin Allergy (Verified 05/09/23 10:05) closed throat and itchy eyes Medication List - Last Reconciled 05/09/23 by Mario Mack PA-C losartan 25 mg PO DAILY 90 days miscellaneous medical supply (Blood Pressure Cuff) As directed Tobacco use date assessed: 05/09/23 Dental Screening Dental Screen Date: 05/09/23 Did you have a dental visit in the last 12 months?: Yes Did you have a dental problem in the last 6 months where you did not have access to dental care?: No Was dental information given to patient?: Patient has dentist HPI Annual Exam HPI Details Patient is a 33-year-old female here today for a PE .? Patient is Uzbek-speaking only to which we have used a remote tugboat captain during this visit. ? Patient has a past medical history significant for to 2 diabetes ,HTN,? family history of breast cancer. Concerns--> has been bothered by a skin lesion on her chin that she would like removed by a commercial stripper. ..DMII:?Has been diet controlled. Does check her Blood sugar at home seldomly and report blood sugars 90 to 110.? Fasting Blood sugar 105. Most recent fasting blood sugar acceptable. Most recent A1c of 5.6. We have discontinue Actos Does see an eye doctor annually. . HTN:? Blood pressure slightly elevated today in office.? Denies any headaches, chest discomfort, headaches or vision issues. Patient continues on losartan 25 mg. Does not check her blood pressures at home. Advise did start checking her blood pressures at home to ensure normal readings. 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 Laboratory Tests 05/08/23 09:25 RBC 4.49 Fasting Glucose 105 H Cholesterol 193 LDL Cholesterol, C alc 123 H [facility] Medical History History of ovarian cyst Surgical History No pertinent past surgical history Family History Mother History of breast cancer, Onset Age: 60 History of diabetes mellitus, type II Father Family history of high cholesterol Social History (Updated 05/09/23 @ 10:12 by Mario Mack PA-C) Housing: House Alcohol intake: current Alcohol intake frequency: holidays/special occasions only Patient Tobacco Use Status: Never used Tobacco e-Cigarette/Vaping Use: Never Used Second Hand Smoke Exposure: No service: No Current occupational status: unemployed Cognitive needs: No Hearing needs: No Vision needs: Yes (glasses) Questionnaire PHQ-9 Over the last 2 weeks, how often have you been bothered by any of the following problems? 1. Little interest or pleasure in doing things: more than half the days 2. Feeling down, depressed, or hopeless: several days 3. Trouble falling or staying asleep, or sleeping too much: nearly every day 4. Feeling tired or having little energy: more than half the days 5. Poor appetite or overeating: more than half the days 6. Feeling bad about yourself - or that you are a failure or have let yourself or your family down: more than half the days 7. Trouble concentrating on things, such as reading the newspaper or watching television: more than half the days 8. Moving or speaking so slowly that other people could have noticed. Or the opposite - being so fidgety or restless that you have been moving around a lot more than usual: more than half the days 9. Thoughts that you would be better off or of hurting yourself in some way: several days Total score: 17 Depression Screening Interpretation: Positive Depression Screening Follow-up: Existing condition Depression Screening Done: Yes 21087 - PHQ-9 Billing: Yes Source: Developed by Drs. Girish Ibrahim, Patito Beasley, Mike Monroy and colleagues, with an educational miguel angel from [employer]. Thrive Questionnaire Date Thrive assessed: 05/09/23 I am a: Patient What is your living situation today?: I have a steady place to live Within the past 12 months, did the food you bought not last and you didn't have the money to get more?: Never true Within the past 12 months, did you worry whether your food would run out before you got money to buy more?: Never true Do you have trouble paying for medicines?: No Do you have trouble getting transportation to medical appointments?: No Do you have trouble paying your heating and electricity bill?: No Do you have trouble taking care of your child, family member or friend?: No Do you have trouble with day-to-day activities such as bathing, preparing meals, shopping, managing finances, etc.?: No Are you currently unemployed and looking for a job?: No Are you interested in more education?: No Please select the resources that you would like help with: None Currently or been in a relationship where the following occur: no concerns reported THRIVE Score: 0 AUDIT C Alcohol Use Questionnaire (AUDIT-C) 1. How often do you have a drink containing alcohol?: Monthly or less 2. How many drinks containing alcohol do you have on a typical day when you are drinking?: 1 or 2 3. How often do you have six or more drinks on one occasion?: Never Total Score: 1 SAMMY-7 AMB Questionnaire SAMMY-7 Date SAMMY - 7 assessed: 05/09/23 Feeling nervous, anxious, or on edge: 3 = Nearly every day Not being able to stop or control worryin = More than half the days Worrying too much about different things: 3 = Nearly every day Trouble relaxin = More than half the days Being so restless that it is hard to sit still: 2 = More than half the days Becoming easily annoyed or irritable: 2 = More than half the days Feeling afraid as if something awful might happen: 3 = Nearly every day Total SAMMY-7 score (0-4 normal; 5-9 mild; 10-14 moderate; 15-21 severe): 17 Source: Developed by Drs. Girish Ibrahim, Patito Beasley, Mike Monroy and colleagues, with an educational miguel angel from [employer]. SAMMY-7 Assessment Billing SAMMY-7 Assessment Tool: SAMMY-7 Assessment 30646 Review of Systems Const Denies body aches, Denies chills, Denies excessive sweating, Denies fatigue, Denies fever(s) and Denies headache(s) Eyes Denies blurry vision ENT Denies dysphagia, Denies vertigo, Denies dizziness, Denies headache(s), Denies hearing loss and Denies tinnitus Card Denies chest pain, Denies chest pain with activity, Denies syncope, Denies irregular heart rhythm and Denies dyspnea Resp Denies chest congestion, Denies cough, Denies hemoptysis, Denies dyspnea and Denies wheezing GI Denies abdominal pain, Denies melena, Denies hematochezia, Denies coffee ground emesis, Denies dysphagia, Denies diarrhea, Denies nausea and Denies vomiting Denies urinary frequency, Denies dysuria, Denies urinary hesitancy and Denies urinary urgency Musc Denies arthralgias, Denies limited range of motion, Denies muscle cramps and Denies muscle weakness Skin/Breast Denies rash and Denies skin ulcer Neuro Denies Abnormal speech present, Denies confusion, Denies vertigo, Denies dizziness, Denies syncope, Denies headache(s), Denies memory loss and Denies seizure-like activity Psych Denies anxiety, Denies confusion, Denies depression, Denies memory loss, Denies panic attacks and Denies paranoia Endo Denies excessive sweating, Denies fatigue, Denies flushing, Denies polydipsia and Denies polyuria Aller/Immun Denies wheezing Physical exam (Primary Care) Vital Signs: Last Vital Signs Pulse 84 05/09/23 09:40 Resp 16 05/09/23 09:40 BP 142/98 H 05/09/23 09:40 Pulse Ox 99 05/09/23 09:40 Oxygen Delivery Method Room Air 05/09/23 09:40 BMI result Body Mass Index 25.8 Tobacco/Smoking Status: Tobacco use Status Tobacco use date assessed 05/09/23 05/09/23 10:01 Patient Tobacco Use Status Never used Tobacco 05/09/23 09:40 e-Cigarette/Vaping Use Never Used 05/09/23 09:40 PHQ-9: PHQ-9 Score PHQ-9: Total score 17 05/09/23 09:58 Depression Screening Interpretation: Positive Depression Screening Follow-up: Existing condition Thrive Assessment: Date of Thrive Assessment Date Thrive assessed 05/09/23 05/09/23 09:53 Currently or been in a relationship where the following occur: no concerns reported Const General: cooperative, comfortable, no acute distress, alert and awake; No confusion Orientation/consciousness: oriented to person, oriented to place, patient oriented x3 and No confusion HENMT Head: Yes normocephalic Ears: external ears normal and TM's normal bilaterally Face and sinus: No sinus tenderness Mouth: Normal oral and palatal mucosa present and tongue normal Teeth and gingiva: dentition normal and gingiva normal Throat: Yes posterior oropharynx normal, Yes tonsils normal and Yes uvula midline Eyes Conjunctivae: conjunctivae normal Sclerae: sclerae normal Pupils: Equal, round and reactive pupils present EOM: EOMs intact bilaterally Direct Ophthalmoscopy: No no photophobia Neck Neck: Yes no lymphadenopathy, No tender and Yes no JVD Thyroid: Thyroid normal Carotids: no bruits Chest Chest palpation & inspection: no tenderness Resp Effort & Inspection: normal respiratory effort, no audible wheezes, not labored and no stridor Auscultation: no crackles, no rales, no rhonchi and no wheezes Cardio Jugular venous distension: no JVD Rate: regular rate, not bradycardic and not tachycardic Rhythm: regular rhythm Bruits: no carotid bruits Peripheral pulses: Peripheral pulses 2+ throughout GI Inspection: Yes normal to inspection, No abdominal wall ecchymosis and No visible herniation Palpation (GI): Soft to palpation, nontender, no guarding, not rigid and No hepatosplenomegaly present Auscultation: normoactive bowel sounds General: Yes no CVA tenderness Back/Spine/Pelvis Back: no CVA tenderness and No back tenderness Cervical Spine: cervical ROM normal Thoracic/Lumbar Spine: thoracic and lumbar spine normal to inspection, straight leg raise negative bilaterally, No thoraco-lumbar ROM limited and No lumbar spinal tenderness Skin Lesions: no lesions Rashes: no rashes Wounds: no wounds Neuro General: oriented to person, oriented to place, patient oriented x3, CN's II-XI intact bilaterally and No confusion Cranial nerves: Yes Equal, round and reactive pupils present and Yes Normal accommodation reflex present Cognition (Neuro): normal cognition Speech: No Abnormal speech present Gait exam (Neuro): Normal gait present Motor exam (neuro): 5/5 motor strength present throughout Extrem Right upper extremity: full ROM; no cyanosis Left upper extremity: full ROM; no cyanosis Right lower extremity: no edema Left lower extremity: no edema Psych Appearance: grossly normal Mental Status: mental status grossly normal Affect: normal affect Attitude: cooperative Thought process: Normal thought process present Assessment and Plan Assessment & Plan (1) Annual physical exam: Code(s): Z00.00 - Encounter for general adult medical examination without abnormal findings (2) HTN (hypertension): Code(s): I10 - Essential (primary) hypertension Qualifiers: Hypertension type: essential hypertension Qualified Code(s): I10 - Essential (primary) hypertension Plan: Blood pressure today in office slightly elevated. She continues on losartan 25 mg, she does report blood pressures at home are slightly above 140 systolic. Will increase her losartan dose to 50 mg for better blood pressure control. Otherwise is asymptomatic without headaches, chest discomforts or syncopal episodes. Advised on monitoring blood pressure at home as has suspect there is a white coat hypertension element tear. Goal blood pressure to be below 140/90 (3) Type 2 diabetes mellitus: Code(s): E11.9 - Type 2 diabetes mellitus without complications Qualifiers: Diabetes mellitus care transport nurse insulin use: without residential use Diabetes mellitus complication status: with hyperglycemia Qualified Code(s): E11.65 - Type 2 diabetes mellitus with hyperglycemia Plan: Patient's type 2 diabetes well controlled with Diet. . We have trialed her being off of Actos and has been able to manage her blood sugars without medication. Goal A1c is to remain below 6.0 (4) Skin lesion of face: Code(s): L98.9 - Disorder of the skin and subcutaneous tissue, unspecified Plan: Has noted a skin lesion on her chin that she would like removed by a commercial stripper. Replacement dermatology referral (5) SAMMY (generalized anxiety disorder): Code(s): F41.1 - Generalized anxiety disorder Plan: Patient's SAMMY-7 score positive for anxiety which has been existing condition for her. She has not interested in starting any medication or talking to mental health therapy at this time. (6) MDD (major depressive disorder), recurrent episode, moderate: Code(s): F33.1 - Major depressive disorder, recurrent, moderate Plan: Patient's PHQ-9 score positive for depression which has been existing condition for her. Again not interested in starting medication or speaking with mental health therapy Orders: Orders Comprehensive [place]. Panel Fast 6 Months I10 - Essential (primary) hypertension Complete Blood Count no Diff 6 Months E11.65 - Type 2 diabetes mellitus with hyperglycemia Hemoglobin A1c 6 Months E11.65 - Type 2 diabetes mellitus with hyperglycemia Lipid Panel 6 Months E11.65 - Type 2 diabetes mellitus with hyperglycemia Referrals Dermatology Referral L98.9 - Disorder of the skin and subcutaneous tissue, unspecified Medications: New losartan 50 mg PO DAILY 90 days 90 tabs 1RF I10 - Essential (primary) hypertension Discontinued losartan Discontinued Reason: Doctor's Order 25 mg PO DAILY 90 days 90 tabs 2RF I10 - Essential (primary) hypertension Coding Level of Care Code Est Pt Prev Care 18-39y(14107) Diagnoses Annual physical exam Z00.00 Essential hypertension I10 Hypertension type: essential hypertension Type 2 diabetes mellitus with hyperglycemia, without long-term current use of insulin E11.65 Diabetes mellitus residential insulin use: without residential use Diabetes mellitus complication status: with hyperglycemia Skin lesion of face L98.9 SAMMY (generalized anxiety disorder) F41.1 MDD (major depressive disorder), recurrent episode, moderate F33.1 Additional Codes SAMMY-7 Assessment Billing - SAMMY-7 Assessment Tool: SAMMY-7 Assessment 87955 ([id number])
[2023-05-09 09:40] VITALS: BP 142/98; PULSE 84; RESP 16; O2SAT 99; BMI 25.8
== END 2023-05-09 10:21 | disposition home or self-care (01) ==
PROVIDERS: Visit Provider Physician Assistant
DX: Z00.00 Encounter for general adult medical examination without abnormal findings (principal); I10 Essential (primary) hypertension; E11.65 Type 2 diabetes mellitus with hyperglycemia; F33.1 Major depressive disorder, recurrent, moderate
CPT/HCPCS: 99395

== ENCOUNTER 2023-05-28 11:37 | Outpatient (REF) | payer OTHER, SELFPAY | END 2023-05-28 11:38 | disposition home or self-care (01) | LOC: HO.LNP 11:37 | PROVIDERS: PCP Physician Assistant; Visit Provider Obstetrics & Gynecology | DX: N93.9 Abnormal uterine and vaginal bleeding, unspecified (principal); Z32.02 Encounter for pregnancy test, result negative | CPT/HCPCS: 58100; 81025; 88305 ==

== ENCOUNTER 2023-05-28 11:37 | Outpatient (AMB) | payer OTHER, SELFPAY ==
[2023-05-28 11:39] VITALS: BP 120/86; BMI 25.8
--- NOTE | 2023-05-28 11:39 | MHC.OFFVIS ---
Intake Vital Signs 05/28/23 11:39 Height 5 ft 11 in Weight 185 lb BMI 25.8 BP 120/86 Intake Visit Reasons: US Follow up/EMB Care Specialist Required: Yes Care Specialist Language: Ms Sql Server Developer Name: Krystina COFFMAN Information Interpreted: non-clinical & clinical Business Operations Director: Business Operations Director Present (Hafsa) Accompanied by: Self / Same As Patient Allergies ketorolac Allergy (Intermediate, Verified 05/28/23 11:47) Anaphylaxis aspirin Allergy (Verified 05/28/23 11:47) closed throat and itchy eyes Is last menstrual period known: Yes Last menstrual period: 05/01/23 HPI HPI Comments History of Present Illness Details Presenting for EMB PFS Medical History History of ovarian cyst Surgical History No pertinent past surgical history Family History Mother History of breast cancer, Onset Age: 60 History of diabetes mellitus, type II Father Family history of high cholesterol Social History Housing: House Alcohol intake: current Alcohol intake frequency: holidays/special occasions only Patient Tobacco Use Status: Never used Tobacco e-Cigarette/Vaping Use: Never Used Second Hand Smoke Exposure: No service: No Current occupational status: unemployed Cognitive needs: No Hearing needs: No Vision needs: Yes (glasses) Female Reproductive History Menstrual Date of last menstrual period: 05/01/23 Physical Exam Vital Signs: Last Vital Signs BP 120/86 05/28/23 11:39 BMI result Body Mass Index 25.8 Office Procedures Endometrial Biopsy Details: The patient was counseled regarding the indication and benefits of endometrial sampling to rule out endometrial pathology including not limited to endometrial hyperplasia or endometrial cancer and others; The alternatives (Either do nothing vs. hysteroscopy D&C) & the risks were discussed with the patient including but not limited: pain, uterine perforation, bleeding, infection, possible injury to bladder, bowel, ureter, possible need for blood transfusion with all its possible risks. The patient verbalized understanding all questions answered and signed consent. Urine test done in the office was negative The patient was placed into the dorsal lithotomy position; a speculum was inserted in the vagina. Using aseptic technique for the procedure, the cervix was cleansed with Betadine. The anterior lip of the cervix was grasped with a single tooth tenaculum. The uterus was sounded to 7 cm with a 4 mm Pipelle was used. Tissues samples were obtained and placed in formalin, in a patient labeled container and sent to the pathology department. At the end of the procedure, there was minimal bleeding noted The patient tolerated the procedure well and was discharged in good condition with the following instructions: Nothing in the vagina until the bleeding stops. No sex until the bleeding stops, to call if any of the following occurs: fever (>100.4), flu-like symptoms, abdominal pain, heavy bleeding, four smelling vaginal discharge. The patient was instructed to schedule a Follow up appointment in 2 weeks to discuss pathology results of the biopsy and treatment options. This note was generated with a voice recognition program. Some errors may have been overlooked during the review of this note. Sometimes these errors may affect the content or meaning of a given sentence. [id number] Biopsy Results AMB Test Urine AMB Test Urine Negative Last Edit by MEGHNA Cruz on 05/28/23 11:58 Assessment & Plan Assessment & Plan (1) Abnormal uterine bleeding (AUB): Code(s): N93.9 - Abnormal uterine and vaginal bleeding, unspecified Plan: emb done, see procedure note Orders: Orders AMB Endometrial Biopsy Today N93.9 - Abnormal uterine and vaginal bleeding, unspecified AMB HCG Urine Test Today Z32.02 - Encounter for test, result negative Coding Level of Care Code Procedure Only Diagnoses Abnormal uterine bleeding (AUB) N93.9 CPT Codes Endometrial Biopsy - CPT: 76514-[id number] Biopsy ([id number])
== END 2023-05-28 12:05 | disposition home or self-care (01) ==
LOC: HO.HWS 11:37
PROVIDERS: PCP Physician Assistant; Visit Provider Obstetrics & Gynecology
DX: N93.9 Abnormal uterine and vaginal bleeding, unspecified (principal); Z32.02 Encounter for pregnancy test, result negative
CPT/HCPCS: 58100

== ENCOUNTER 2023-06-28 11:04 | Outpatient (AMB) | payer OTHER, SELFPAY ==
[2023-06-28 11:19] VITALS: BP 122/84; BMI 25.8
--- NOTE | 2023-06-28 11:19 | MHC.OFFVIS ---
Vital Signs 06/28/23 11:19 Height 5 ft 11 in Weight 185 lb BMI 25.8 BP 122/84 Intake Visit Reasons: EMB Results Veneer Puller Required: Yes Veneer Puller Language: Application Developer Manager Name: Marquis [id number] Allergies ketorolac Allergy (Intermediate, Verified 06/28/23 11:20) Anaphylaxis aspirin Allergy (Verified 06/28/23 11:20) closed throat and itchy eyes Is last menstrual period known: Yes Last menstrual period: 06/02/23 Post menopausal: No HPI Comments Details: The patient is presenting for follow-up to discuss the results of her abnormal uterine bleeding workup and options of treatment. The following workup was done.: H&H= 12.7/39.2 TSH, prolactin, hCG, GC and chlamydia were negative. Endometrial biopsy pathology showed late secretory endometrium with no evidence of hyperplasia and/or malignancy. 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 Pelvic ultrasound showed the following: The uterus measures 8.0 x 4.2 x 5.2 cm in longitudinal by AP by transverse dimension. The endometrial stripe measures 1.3 cm. There is an arcuate type uterus. Several prominent nabothian cysts are noted within the cervix. The left ovary measures approximately 3.9 x 3.4 x 3.5 cm and contains an approximately 2 cm cystic structure felt to represent a degenerating corpus luteum. The right ovary measures approximately 4.0 x 2.1 x 2.4 cm and is normal. There is a small amount of free fluid in the pelvis. [facility] Medical History (Updated 06/28/23 @ 11:25 by Moy Gar MD) HTN (hypertension) History of ovarian cyst Surgical History No pertinent past surgical history Family History Mother History of breast cancer, Onset Age: 60 History of diabetes mellitus, type II Father Family history of high cholesterol Social History Housing: House Alcohol intake: current Alcohol intake frequency: holidays/special occasions only Patient Tobacco Use Status: Never used Tobacco e-Cigarette/Vaping Use: Never Used Second Hand Smoke Exposure: No service: No Current occupational status: unemployed Cognitive needs: No Hearing needs: No Vision needs: Yes (glasses) Female Reproductive History Menstrual Date of last menstrual period: 06/02/23 control method: none Date of last pap smear: 10/02/22 (negative) Review of Systems Const All systems reviewed & are unremarkable except as noted in HPI and below Reports as per HPI and Reports no additional complaints GI Reports no additional complaints Reports no additional complaints Assessment & Plan Assessment & Plan (1) Abnormal uterine bleeding (AUB): Code(s): N93.9 - Abnormal uterine and vaginal bleeding, unspecified Category: Medical Plan: Discussed with the patient the results of the work up done and options of treatment including BCP's, Mirena IUD, others. All pros, cons, risks and benefits if each option was discussed with the patient and the patient decided to think about it and stated that she will call back with her decision . All questions answered the patient verbalized understanding. Coding Level of Care Code Est Pt Level 3 (00873) Diagnoses Abnormal uterine bleeding (AUB) N93.9
== END 2023-06-28 11:35 | disposition home or self-care (01) ==
PROVIDERS: PCP Physician Assistant; Visit Provider Obstetrics & Gynecology
DX: N93.9 Abnormal uterine and vaginal bleeding, unspecified (principal)
CPT/HCPCS: 99213

== ENCOUNTER → 2023-06-28 11:04 | Outpatient (BNVA) | payer OTHER, SELFPAY | PROVIDERS: PCP Physician Assistant; Visit Provider Obstetrics & Gynecology | DX: N93.9 Abnormal uterine and vaginal bleeding, unspecified (principal) | CPT/HCPCS: 99212 ==

== ENCOUNTER 2023-11-12 09:02 | Outpatient (REF) | payer OTHER, SELFPAY ==
[2023-11-12 09:47] LABS: Hematocrit 37.7 % (37.0-47.0); Hemoglobin 12.7 g/dl (12.0-16.0); Mean Corpuscular HGB Conc 33.7 g/dl (31.0-35.0); Mean Corpuscular Hemoglobin 29.8 pg (27.0-33.0); Mean Corpuscular Volume 88.5 fL (80.0-98.0); Mean Platelet Volume 9.8 fL (9.4-12.3); Platelet Count 290 X10*3/uL (160-400); Red Blood Count 4.26 X10*6/uL (4.20-5.50); Red Cell Distribution Width 14.5 % (11.0-16.0); White Blood Count 6.3 X10*3/uL (4.8-10.8)
[2023-11-12 10:02] LABS: Estimated Average Glucose 108 mg/dL; Hemoglobin A1c % 5.4 % (<6.0)
[2023-11-12 10:32] LABS: Alanine Aminotransferase 9 U/L (0-31); Albumin Level 4.1 g/dL (3.5-5.0); Alkaline Phosphatase 51 U/L (39-117); Anion Gap 11 (12-20); Aspartate Amino Transferase 10 U/L (5-31); Bilirubin Total 1.1 mg/dL (0.0-1.0); Blood Urea Nitrogen 10 mg/dL (9-16); Calcium 9.9 mg/dL (8.4-10.2); Carbon Dioxide 25 mmol/L (22-29); Chloride 106 mmol/L (96-108); Cholesterol 176 mg/dL (<200); Estimated Glomerular Filt Rate > 60; Glucose Fasting 88 mg/dL (60-99); HDL Cholesterol 59 mg/dL (>40); LDL Cholesterol Calculated 106 mg/dL (<100); Potassium 3.8 mmol/L (3.3-5.1); Sodium 138 mmol/L (135-145); Total Protein 7.2 g/dL (6.5-8.0); Triglycerides 56 mg/dL (<150)
== END 2023-11-12 09:03 | disposition home or self-care (01) ==
LOC: HO.LAB 09:02
PROVIDERS: PCP Physician Assistant; Visit Provider Physician Assistant
DX: E11.65 Type 2 diabetes mellitus with hyperglycemia (principal); I10 Essential (primary) hypertension
CPT/HCPCS: 36415; 80053; 80061; 83036; 85027

== ENCOUNTER 2023-11-15 15:15 | Outpatient (AMB) | payer OTHER, SELFPAY ==
--- NOTE | 2023-11-15 15:41 | A.OFFVIS_ITS ---
Vital Signs 11/15/23 15:42 Height 5 ft 11 in Weight 176 lb 5.917 oz BMI 24.6 BP 140/90 H Blood Pressure Location Rt brachial Position Sitting Pulse 90 Pulse Source Pulse Oximeter Intake Visit Reasons: 6 month f/u rs E Learning Designer Required: Yes E Learning Designer Language: Spray Painter Helper Services: E Learning Designer Present E Learning Designer Name: philip keen [id number] Allergies ketorolac Allergy (Intermediate, Verified 11/15/23 15:45) Anaphylaxis aspirin Allergy (Verified 11/15/23 15:45) closed throat and itchy eyes Medication List - Last Reconciled 11/15/23 by ALEJANDRA Alfred losartan 50 mg PO DAILY 90 days miscellaneous medical supply (Blood Pressure Cuff) As directed HPI HPI 6 month f/u rs: Details: Karsten is a 33-year-old female with past medical history of syncopal episodes. Last episode 10/2023 at which time she was admitted to [facility] with tiny subarachnoid bleed. Cardiac evaluation showed no clear finding for her syncopal events. Today she reports that she has not had any recurrent syncope since last October. She is anxious about when it is going to occur again. She does not recall any known triggers or significant symptoms prior to her events. 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 She will notice that her heart rate is going fast. She says she gets this at home as well when she is upright for awhile. She maintains good hydration. She is compliant with her medications. No chest discomfort, shortness of breath, lightheadedness, recent falls. She does only light physical activities. She has not seen the neurologist as of yet. [facility] Medical History HTN (hypertension) History of ovarian cyst Surgical History No pertinent past surgical history Family History Mother History of breast cancer, Onset Age: 60 History of diabetes mellitus, type II Father Family history of high cholesterol Social History Housing: House Alcohol intake: current Alcohol intake frequency: holidays/special occasions only Patient Tobacco Use Status: Never used Tobacco e-Cigarette/Vaping Use: Never Used Second Hand Smoke Exposure: No service: No Current occupational status: unemployed Cognitive needs: No Hearing needs: No Vision needs: Yes (glasses) Review of Systems Const All systems reviewed & are unremarkable except as noted in HPI and below ENT Denies dizziness Card Denies chest pain, Denies chest pain at rest, Denies chest pain with activity, Reports rapid heart rate (when standing), Denies pedal edema, Denies edema, Denies leg edema, Denies lightheadedness, Denies palpitations, Denies dyspnea, Reports dyspnea on exertion (mild) and Denies orthopnea Resp Denies cough, Denies dyspnea and Reports dyspnea on exertion (mild) GI Denies hematochezia and Denies change in stool character Musc Denies abnormal gait, Reports limited range of motion, Reports muscle cramps, Denies muscle weakness, Denies numbness, Denies radiating pain into limb, Denies stiffness and Denies tingling Neuro Denies abnormal gait, Denies dizziness, Denies numbness and Denies tingling Endo Denies palpitations Physical Exam Vital Signs: Last Vital Signs Pulse 90 11/15/23 15:42 BP 140/90 H 11/15/23 15:42 BMI result Body Mass Index 24.6 Const General: cooperative, healthy appearing, comfortable and no acute distress Orientation/consciousness: patient oriented x3 Neck Neck: Yes normal visual inspection Resp Effort & Inspection: normal respiratory effort Auscultation: clear to auscultation bilaterally, no crackles, no rales, no rhonchi and no wheezes Cardio Rate: regular rate Rhythm: regular rhythm Heart sounds: S1 normal heart sound present, S2 normal heart sound present, no murmurs and no rubs Neuro General: patient oriented x3 Extrem General: Yes normal to inspection, No no pedal edema and No calf tenderness Psych Appearance: grossly normal Mental Status: mental status grossly normal Speech and movement: Normal speech and movement present Assessment & Plan Assessment & Plan (1) Syncope: Code(s): R55 - Syncope and collapse Category: Medical Plan: History of syncopal events when she was in [place] and here in the [place] Her last episode was 10/2022 prompting admission to [facility] where she was found to have a tiny subarachnoid bleed. Per [facility] imaging, tiny focus of high density in the right frontal lobe, thought to be either apparent cranial or subarachnoid bleed. CTA head showed no acute intracranial lesions. Carotid/vertebral arteries were also unremarkable. An echocardiogram was unremarkable, EF 55-60%. Her EKG has no evidence of prolonged QT interval, Brugada or other arrhythmia inducing syndromes. Holter monitor was done 01/12/2023 for 3 days which showed sinus rhythm with average heart rate 84, heart rate range 50 to 151, no significant pauses or arrhythmias. Hypotension was not felt to be a cause as her blood pressure tends to run high. She is on losartan. Today she reports that she has not had any recurrent episodes but is fearful of when it will occur next. She was referred to neurology following last visit however has not had an appointment yet. 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 On exam today I am not seeing a significant change in her pulse rate between sitting and standing. Will check a tilt-table test to evaluate for POTS or other cause of her syncope. Instructed on maintaining good hydration. Try to recognize the warning signs of symptoms and get herself in a sitting or laying down position. Cardiology follow-up in the office 6 months, sooner if needed. (2) Palpitations: Code(s): R00.2 - Palpitations Category: Medical Plan: As above Plan Time spent on chart review, documentation, interview and assessment Orders: Orders ECG Tilt Table Test Today R00.2 - Palpitations, R55 - Syncope and collapse Coding Level of Care Code Est Pt Level 3 (13708) Diagnoses Syncope R55 Palpitations R00.2 Time Spent (min) 24
[2023-11-15 15:42] VITALS: BP 140/90; PULSE 90; BMI 24.6
== END 2023-11-15 17:30 | disposition home or self-care (01) ==
PROVIDERS: PCP Physician Assistant; Visit Provider Nurse Practitioner Family
DX: R55 Syncope and collapse (principal); R00.2 Palpitations
CPT/HCPCS: 99213

== ENCOUNTER → 2023-11-15 15:15 | Outpatient (BNVA) | payer OTHER, SELFPAY | PROVIDERS: PCP Physician Assistant; Visit Provider Nurse Practitioner Family | DX: R55 Syncope and collapse (principal); R00.2 Palpitations | CPT/HCPCS: 99212 ==

== ENCOUNTER 2024-01-15 10:57 | Outpatient (AMB) | payer OTHER, SELFPAY ==
--- NOTE | 2024-01-15 10:58 | MHC.OFFVIS ---
Vital Signs 01/15/24 11:02 Weight 175 lb BP 126/74 Intake Visit Reasons: co test Credit Portfolio Advisor Required: Yes Credit Portfolio Advisor Language: Video Engineer Services: Credit Portfolio Advisor Present (in person) Credit Portfolio Advisor Name: MEGHNA Stlyes Managed Services Sales Consultant: Managed Services Sales Consultant Present (Janneth) Accompanied by: Self / Same As Patient Allergies ketorolac Allergy (Intermediate, Verified 01/15/24 11:03) Anaphylaxis aspirin Allergy (Verified 01/15/24 11:03) closed throat and itchy eyes HPI Comments Details: Presenting for annual exam with no complaint. Last co testing was in 10/18 showed LSIL/HPV E6 E7 positive, this was followed by colpo biopsy ECC, all came back negative [facility] Medical History (Updated 01/15/24 @ 11:10 by Moy Gar MD) Dysplasia of cervix, low grade (GINO 1) HTN (hypertension) History of ovarian cyst Surgical History No pertinent past surgical history Family History Mother History of breast cancer, Onset Age: 60 History of diabetes mellitus, type II Father Family history of high cholesterol Social History Housing: House Alcohol intake: current Alcohol intake frequency: holidays/special occasions only Patient Tobacco Use Status: Never used Tobacco e-Cigarette/Vaping Use: Never Used Second Hand Smoke Exposure: No service: No Current occupational status: unemployed Cognitive needs: No Hearing needs: No Vision needs: Yes (glasses) Female Reproductive History Menstrual Duration of menses: 3-5 days Date of last menstrual period: 01/01/24 Review of Systems Const All systems reviewed & are unremarkable except as noted in HPI and below Card Reports as per HPI Resp Reports as per HPI GI Reports as per HPI and Reports no additional complaints Reports as per HPI Physical Exam Vital Signs: Last Vital Signs BP 126/74 01/15/24 11:02 Const General: cooperative, healthy appearing and comfortable Chest Chest palpation & inspection: normal inspection of the chest and normal palpation of entire chest wall Breast/axilla inspection: normal inspection of the breasts and normal inspection of the axillae Breast/axilla palpation: normal palpation of the breasts, normal palpation of the axillae and no axillary lymphadenopathy Resp Effort & Inspection: normal respiratory effort Auscultation: clear to auscultation bilaterally Percussion: percussion normal Cardio Palpation: normal PMI Rate: regular rate Rhythm: regular rhythm Heart sounds: no murmurs and no rubs Peripheral pulses: Peripheral pulses 2+ throughout GI Inspection: Yes normal to inspection Palpation (GI): Soft to palpation, nontender, no guarding, not rigid and No hepatosplenomegaly present Percussion: Yes normal to percussion Auscultation: normal bowel sounds Rectal Exam - Female: deferred General: Yes bladder normal to palpation External Female Exam: No lesion Speculum Exam - Vagina: normal appearance of the vagina, normal palpation, normal vaginal discharge and not erythematous Speculum Exam - Cervix: normal appearance of the cervix and normal palpation Bimanual exam- vagina & uterus: normal bimanual exam, normal palpation, uterine size normal, bladder normal to palpation, consistency normal and normal palpation Bimanual Exam- Adnexa, other: normal adnexae, no masses and no tenderness Assessment & Plan Assessment & Plan (1) Well woman exam: Code(s): Z01.419 - Encounter for gynecological examination (general) (routine) without abnormal findings Category: Medical Plan: Cotesting done. Counseled the patient about the recommended dietary allowance of 1000 mg of Calcium & 600 IU of vitamin D. The patient was instructed to perform monthly self-breast exams and to schedule an annual exam in a year; All questions answered and the patient verbalized understanding. Instructed the patient to schedule annual exam in a year Coding Level of Care Code Est Pt Prev Care 18-39y(79186) Diagnoses Well woman exam Z01.419
[2024-01-15 11:02] VITALS: BP 126/74
== END 2024-01-15 11:17 | disposition home or self-care (01) ==
LOC: HO.HWS 10:57
PROVIDERS: PCP Physician Assistant; Visit Provider Obstetrics & Gynecology
DX: Z01.419 Encounter for gynecological examination (general) (routine) without abnormal findings (principal)
CPT/HCPCS: 99395

== ENCOUNTER 2024-01-15 10:57 | Outpatient (REF) | payer OTHER, SELFPAY ==
[2024-01-16 11:15] LABS: HPV 16,18/45 See PAP report
[2024-01-16 11:17] LABS: HPV 16,18/45 See PAP report
== END 2024-01-15 10:58 | disposition home or self-care (01) ==
LOC: HO.LNP 10:57
PROVIDERS: PCP Physician Assistant; Visit Provider Obstetrics & Gynecology
DX: Z01.419 Encounter for gynecological examination (general) (routine) without abnormal findings (principal); N87.0 Mild cervical dysplasia
CPT/HCPCS: 87624; 88175; 99395

== ENCOUNTER 2024-01-30 15:26 | Outpatient (AMB) | payer OTHER, SELFPAY ==
--- NOTE | 2024-01-30 15:51 | MHC.PC.OV ---
Vital Signs 01/30/24 15:52 Height 5 ft 11 in Weight 174 lb 4 oz BMI 24.3 BP 140/92 H Blood Pressure Location Lt brachial Position Sitting Pulse 72 Pulse Source Pulse Oximeter Pulse Oximetry (%) 100 Oxygen Delivery Method Room Air Intake Visit Reasons: 6 Month F/U- NEEDS A1C Assistant Oceanographer Required: No Accompanied by: Friend Allergies ketorolac Allergy (Intermediate, Verified 01/30/24 16:05) Anaphylaxis aspirin Allergy (Verified 01/30/24 16:05) closed throat and itchy eyes Medication List - Last Reconciled 01/30/24 by Mario Mack PA-C losartan 50 mg PO DAILY 90 days miscellaneous medical supply (Blood Pressure Cuff) As directed pioglitazone 30 mg PO DAILY Tobacco use date assessed: 05/09/23 Dental Screening Dental Screen Date: 05/09/23 HPI 6 Month F/U- NEEDS A1C HPI Details Patient is a 33-year-old female here today for follow-up visit .? Patient is Yoruba-speaking only to which we have used a remote claims analyst during this visit. ? Patient has a past medical history significant for to 2 diabetes ,HTN,? family history of breast cancer. Concerns--> having low back pain over the last few weeks. She reports over the left side of her the her lumbar spine she feels a lump or fullness from time to time when her pain presents. She reports the pain in her lower back only presents when she is physically active. She reports years ago getting an injection in her lower back while living in [place]. PLAN: She is interested in trying a muscle relaxer for an as needed basis and getting x-rays of her lower lumbar spine ..DMII:?Has been diet controlled. Now off of all diabetic medication. Does check her Blood sugar at home seldomly and report blood sugars 90 to 110.? Fasting Blood sugar 105. Most recent fasting blood sugar acceptable. Today's A1c below 6.5 Does see an eye doctor annually. . HTN:? Blood pressure slightly elevated today in office.? Denies any headaches, chest discomfort, headaches or vision issues. Patient continues on losartan 25 mg. Does not check her blood pressures at home. Recently underwent a tilt-table test and noted a hypertensive response 210/100. She is willing to start monitoring her blood pressure at home. PLAN: Will add on hydrochlorothiazide to her losartan 50 mg for better blood pressure control. She will be following up with Cardiology this coming spring. [facility] Medical History (Updated 01/31/24 @ 07:26 by Mario Mack PA-C) Family history of breast cancer in first degree relative Environmental allergies HTN (hypertension) Dysplasia of cervix, low grade (GINO 1) Surgical History No pertinent past surgical history Family History Mother History of breast cancer, Onset Age: 60 History of diabetes mellitus, type II Father Family history of high cholesterol Social History Housing: House Alcohol intake: current Alcohol intake frequency: holidays/special occasions only Patient Tobacco Use Status: Never used Tobacco e-Cigarette/Vaping Use: Never Used Second Hand Smoke Exposure: No service: No Current occupational status: unemployed Cognitive needs: No Hearing needs: No Vision needs: Yes (glasses) Questionnaire Thrive Questionnaire Date Thrive assessed: 05/09/23 SAMMY-7 AMB Questionnaire SAMMY-7 Date SAMMY - 7 assessed: 05/09/23 Source: Developed by Drs. Girish Ibrahim, Patito Beasley, Mike Monroy and colleagues, with an educational miguel angel from [employer]. Review of Systems Const Denies headache(s) Eyes Denies loss of vision ENT Denies vertigo, Denies dizziness, Denies headache(s) and Denies sore throat Card Denies chest pain, Denies leg edema and Denies lightheadedness Resp Denies cough, Denies hemoptysis and Denies wheezing GI Denies abdominal pain, Denies melena, Denies constipation, Denies diarrhea and Denies vomiting Denies urinary frequency, Denies dysuria and Denies urinary urgency Musc Reports back pain, Denies arthralgias, Denies joint swelling, Denies numbness and Denies tingling Neuro Denies Abnormal speech present, Denies behavioral changes, Denies vertigo, Denies dizziness, Denies headache(s), Denies loss of vision, Denies memory loss, Denies numbness and Denies tingling Psych Denies anxiety, Denies behavioral changes, Denies depression, Denies memory loss and Denies panic attacks Jono/Lymph Denies easy bleeding and Denies easy bruising Aller/Immun Denies wheezing Physical exam (Primary Care) Vital Signs: Last Vital Signs Pulse 72 01/30/24 15:52 BP 140/92 H 01/30/24 15:52 Pulse Ox 100 01/30/24 15:52 Oxygen Delivery Method Room Air 01/30/24 15:52 BMI result Body Mass Index 24.3 Tobacco/Smoking Status: Tobacco use Status Tobacco use date assessed 05/09/23 01/30/24 15:52 Patient Tobacco Use Status Never used Tobacco 01/30/24 15:52 e-Cigarette/Vaping Use Never Used 01/30/24 15:52 Thrive Assessment: Date of Thrive Assessment Date Thrive assessed 05/09/23 01/30/24 15:52 Const General: healthy appearing, no acute distress, alert and awake Nutritional Appearance: well nourished Orientation/consciousness: oriented to person, oriented to place and oriented to time HENMT Ears: TM's normal bilaterally General nose exam: Normal nasal mucous membranes and turbinates present Eyes Conjunctivae: conjunctivae normal Sclerae: sclerae normal Pupils: Equal, round and reactive pupils present Neck Neck: Yes no lymphadenopathy and Yes no JVD Thyroid: Thyroid normal Carotids: no bruits Resp Effort & Inspection: normal respiratory effort and not tachypneic Auscultation: no crackles, no rales, no rhonchi and no wheezes Cardio Rate: regular rate Rhythm: regular rhythm Heart sounds: no murmurs and normal S1 and S2 GI Palpation (GI): Soft to palpation, nontender, no hepatomegaly and no splenomegaly Auscultation: normal bowel sounds Skin General skin exam: no rashes or lesions noted and dry skin Neuro General: oriented to person, oriented to place and oriented to time Cranial nerves: Yes Equal, round and reactive pupils present Speech: No Abnormal speech present Gait exam (Neuro): Normal gait present Motor exam (neuro): no tremor noted Extrem Right upper extremity: full ROM Left upper extremity: full ROM Right lower extremity: full ROM; no edema Left lower extremity: full ROM; no edema Psych Mental Status: mental status grossly normal Speech and movement: Normal speech and movement present Affect: normal affect Attitude: cooperative Thought process: Normal thought process present Office Procedures Flu Questionnaire Does the patient have a severe egg allergy?: No Does the patient have severe life threatening allergies?: No Does the patient have a fever or illness today?: No Has the patient ever had Guillain-Roundup Syndrome?: No Has the patient ever had any past reaction to a flu shot?: No Results AMB Hemoglobin A1c AMB Hemoglobin A1c 5.3 % Last Edit by LACEY Maravilla on 01/30/24 16:14 Immunizations Fluarix Triv [id number] (PF) 45 mcg (15 mcg x 3)/0.5 mL IM syringe Performing Provider: Mario Mack PA-C Performing Location: [facility] [place] Administered by: LACEY Maravilla on 01/30/24 16:04 Dose Route Admin Location Dispensed Lot Number Expiration Date [facility] Continuous Pickling [employer] Pickler 0.5 mL IM Left Deltoid 0.5 mL [id number] 08/25/24 [id number] T3 MOTION VIS Given Date VIS Provided VIS Publication Date 01/30/24 Single Vaccine 20 Eligibility Eligibility Date Funding Source Not [facility] Eligible 01/30/24 Private Results Reviewed Results Reviewed: Laboratory Last Values Hgb A1c (Clinic) 5.3 % (4.0-6.0) 01/30/24 16:13 Coding Level of Care Code Est Pt Level 4 (79964) Diagnoses Type 2 diabetes mellitus with hyperglycemia, without long-term current use of insulin E11.65 Diabetes mellitus complication status: with hyperglycemia Diabetes mellitus long-term insulin use: without long-term use Essential hypertension I10 Hypertension type: essential hypertension Lumbar spine pain M54.50 Vasovagal syncope R55 Syncope type: vasovagal syncope Assessment & Plan Assessment & Plan (1) Type 2 diabetes mellitus: Code(s): E11.9 - Type 2 diabetes mellitus without complications Category: Medical Qualifiers: Diabetes mellitus complication status: with hyperglycemia Diabetes mellitus long-term insulin use: without lobsterman use Qualified Code(s): E11.65 - Type 2 diabetes mellitus with hyperglycemia Plan: Patient's type 2 diabetes well controlled with dietary modifications. She is now off of all oral antihyperglycemic medication. She will continue to control her type 2 diabetes with diet and exercise. Goal A1c is to remain below 6.5 (2) HTN (hypertension): Code(s): I10 - Essential (primary) hypertension Category: Medical Qualifiers: Hypertension type: essential hypertension Qualified Code(s): I10 - Essential (primary) hypertension Plan: Patient's blood pressure elevated today in office. Was noted to have a hypertensive response to a tilt-table test recently. Will add on hydrochlorothiazide to her blood pressure med regime for better blood pressure control. Advised to monitor blood pressure at home with goal blood pressure to be below 140/90 (3) Lumbar spine pain: Code(s): M54.50 - Low back pain, unspecified Category: Medical Plan: As per HPI patient reports having some lower back pain located in her left lower lumbar area. Will get x-rays and will consider physical therapy. Now she would like to try a muscle relaxer as needed for her back pain. (4) Syncope: Code(s): R55 - Syncope and collapse Category: Medical Qualifiers: Syncope type: vasovagal syncope Qualified Code(s): R55 - Syncope and collapse Plan: Has had a few intermittent episodes of syncope with unclear cause. Was evaluated at [facility] last year in noted to have a small subarachnoid hemorrhage. She was followed up with Cardiology here in [place] and was sent for a tilt-table does for any cause of her syncopal episodes. She was found to have a hypertensive response per patient whom reported having a blood pressure 210/100 during her tilt-table testing. Orders: Orders Influenza [id number] Immunization 01/30/24 Z23 - Encounter for immunization Comprehensive [place]. Panel Fast 01/30/24 E11.65 - Type 2 diabetes mellitus with hyperglycemia Complete Blood Count no Diff 01/30/24 E11.65 - Type 2 diabetes mellitus with hyperglycemia Microalbumin, Random (w Creat) 01/30/24 I10 - Essential (primary) hypertension AMB Hemoglobin A1c 01/30/24 E11.65 - Type 2 diabetes mellitus with hyperglycemia XR lumbar spine 2-3V 01/30/24 M54.50 - Low back pain, unspecified Hemoglobin A1c 01/30/24 E11.65 - Type 2 diabetes mellitus with hyperglycemia Medications: New losartan-hydrochlorothiazide 50-12.5 mg 1 tab PO DAILY 30 days 30 tabs 1RF I10 - Essential (primary) hypertension cyclobenzaprine 5 mg PO BEDTIME 10 days 10 tabs 0RF M54.50 - Low back pain, unspecified Discontinued losartan Discontinued Reason: Doctor's Order 50 mg PO DAILY 90 days 90 tabs 1RF I10 - Essential (primary) hypertension
[2024-01-30 15:52] VITALS: BP 140/92; PULSE 72; O2SAT 100; BMI 24.3
== END 2024-01-30 16:29 | disposition home or self-care (01) ==
PROVIDERS: PCP Physician Assistant; Visit Provider Physician Assistant
DX: E11.65 Type 2 diabetes mellitus with hyperglycemia (principal); I10 Essential (primary) hypertension; M54.50 Low back pain, unspecified; R55 Syncope and collapse

== ENCOUNTER → 2024-01-30 15:26 | Outpatient (BNVA) | payer OTHER, SELFPAY | PROVIDERS: PCP Physician Assistant; Visit Provider Physician Assistant | DX: Z23 Encounter for immunization (principal); E11.65 Type 2 diabetes mellitus with hyperglycemia; I10 Essential (primary) hypertension; M54.50 Low back pain, unspecified; R55 Syncope and collapse | CPT/HCPCS: 83036; 90471; 90656; 99212 ==

== ENCOUNTER 2024-02-01 08:42 | Outpatient (REF) | payer OTHER, SELFPAY | END 2024-02-01 08:43 | disposition home or self-care (01) | LOC: HO.LNP 08:42 | PROVIDERS: PCP Physician Assistant; Visit Provider Obstetrics & Gynecology | DX: R87.612 Low grade squamous intraepithelial lesion on cytologic smear of cervix (LGSIL) (principal) | CPT/HCPCS: 57454; 81025; 88305 ==

== ENCOUNTER 2024-02-01 08:42 | Outpatient (AMB) | payer OTHER, SELFPAY ==
--- NOTE | 2024-02-01 09:04 | MHC.OFFVIS ---
Vital Signs 02/01/24 09:15 Height 5 ft 11 in Weight 174 lb BMI 24.3 BP 116/74 Intake Visit Reasons: Colposcopy Flooring Salesperson Required: Yes Flooring Salesperson Language: Compensation Expert Services: Flooring Salesperson Present (in person) Flooring Salesperson Name: Krystina COFFMAN Information Interpreted: non-clinical & clinical Dental Services Director: Dental Services Director Present (Krystina COFFMAN) Accompanied by: Self / Same As Patient Allergies ketorolac Allergy (Intermediate, Verified 02/01/24 09:17) Anaphylaxis aspirin Allergy (Verified 02/01/24 09:17) closed throat and itchy eyes Is last menstrual period known: Yes Last menstrual period: 01/01/24 HPI Comments Details: The patient is presenting for abnormal Pap smear showing low-grade FARZAD HPV high-risk positive, HPV 16/18 negative [facility] Medical History Family history of breast cancer in first degree relative Environmental allergies HTN (hypertension) Dysplasia of cervix, low grade (GINO 1) Surgical History No pertinent past surgical history Family History Mother History of breast cancer, Onset Age: 60 History of diabetes mellitus, type II Father Family history of high cholesterol Social History Housing: House Alcohol intake: current Alcohol intake frequency: holidays/special occasions only Patient Tobacco Use Status: Never used Tobacco e-Cigarette/Vaping Use: Never Used Second Hand Smoke Exposure: No service: No Current occupational status: unemployed Cognitive needs: No Hearing needs: No Vision needs: Yes (glasses) Female Reproductive History Menstrual Date of last menstrual period: 01/01/24 Review of Systems Const All systems reviewed & are unremarkable except as noted in HPI and below Reports as per HPI and Reports no additional complaints GI Reports no additional complaints Reports no additional complaints Physical Exam Vital Signs: Last Vital Signs BP 116/74 02/01/24 09:15 BMI result Body Mass Index 24.3 Office Procedures Colposcopy Colposcopy: Pre-Procedure Counseling: Before beginning the procedure, I conducted comprehensive counseling with the patient. We thoroughly discussed the procedure itself, including its details, alternatives, and all associated risks. This included but not limited to the following complications such as bleeding, infection, and injury to the vagina, bladder, and vessels, as well as the potential need for transfusion with all its associated risks. Subsequently, the patient sign the consent. Pap smear result: LSIL/HPV high-risk positive, HPV 16/18 negative. Urine test in office = Negative Procedure: During the procedure, the following steps were performed: A speculum was inserted, and acetic acid was applied. Colposcopy was conducted, allowing visualization of the transformation zone. Acetowhite lesions were identified at the 11+ 12+ 4 o'clock position. Cervical biopsies were obtained from the11+ 12+ 4 o'clock position, followed by an endocervical curettage (ECC). Vaginoscopy of the upper vagina revealed no evidence of aceto-white lesions. Hemostasis was achieved using Monsel solution, and the patient tolerated the procedure well. Post-Procedure Instructions: The patient was advised to promptly contact the office or the after hours answering service or go to the emergency room if experiencing a temperature exceeding 100.4?F, abdominal pain, nausea/vomiting, or bleeding. Additionally, the patient was instructed to abstain from vaginal intercourse and bathtub use. The patient confirmed understanding of these instructions. Discharge Instructions: The patient was instructed to schedule a follow-up appointment in 2 weeks for further evaluation and management. Please note that this note was generated using a voice recognition program, and errors may have occurred during veneer glue jointer feedback. 55120-Insxynrge of cervix including upper vagina with biopsy and ECC Procedure code (CPT) selection complete Results AMB Test Urine AMB Test Urine Negative Last Edit by Krystina Salazar CMA on 02/01/24 09:18 Assessment & Plan Assessment & Plan (1) LGSIL on Pap smear of cervix: Comment: HPV high-risk positive, HPV 16/18 negative Code(s): R87.612 - Low grade squamous intraepithelial lesion on cytologic smear of cervix (LGSIL) Category: Medical Plan: Discussed with the patient the result of her abnormal pap, its significance, risk of progression, persistence, and regression. the false positive/negative rate of a Pap smear as a screening test in detecting cervical cancer and the indication for a diagnostic test -colposcopy, biopsy, endocervical curettage. The patient verbalized understanding and agreed with the plan, all questions answered. Colposcopy/biopsy/ECC done, see procedure note Orders: Orders AMB Colposcopy Today R87.612 - Low grade squamous intraepithelial lesion on cytologic smear of cervix (LGSIL) AMB HCG Urine Test Today Z32.02 - Encounter for test, result negative Coding Level of Care Code Procedure Only Diagnoses LGSIL on Pap smear of cervix R87.612 CPT Codes Colposcopy - CPT: 79756-Hbkfkqbym of cervix including upper vagina with biopsy and ECC ([id number])
[2024-02-01 09:15] VITALS: BP 116/74; BMI 24.3
== END 2024-02-01 09:34 | disposition home or self-care (01) ==
LOC: HO.HWS 08:42
PROVIDERS: PCP Physician Assistant; Visit Provider Obstetrics & Gynecology
DX: R87.612 Low grade squamous intraepithelial lesion on cytologic smear of cervix (LGSIL) (principal); Z32.02 Encounter for pregnancy test, result negative
CPT/HCPCS: 57454

== ENCOUNTER 2024-02-05 09:22 | Outpatient (AMB) | payer OTHER, SELFPAY ==
--- NOTE | 2024-02-05 09:26 | MHC.OFFVIS ---
Intake Visit Reasons: colpo results Regional Merchandising Manager Required: Yes Regional Merchandising Manager Language: Pricer Services: Regional Merchandising Manager Present (in person) Regional Merchandising Manager Name: Krystina COFFMAN Information Interpreted: non-clinical & clinical Allergies ketorolac Allergy (Intermediate, Verified 02/05/24 09:27) Anaphylaxis aspirin Allergy (Verified 02/05/24 09:27) closed throat and itchy eyes HPI Comments Details: The patient is scheduled tele health visit post colpo for follow-up. The patient is doing well with no complaints. The pathology showed the following: A. Endocervix, curettage: Low-grade squamous intraepithelial lesion (mild dysplasia, GINO 1), and detached fragments of endocervical glandular epithelium present. B. Cervix, 4:00, biopsy: Squamous mucosa and scant detached endocervical glandular epithelium with rare detached atypical cells consistent with low-grade squamous intraepithelial lesion (mild dysplasia, GINO 1). C. Cervix, 11:00, biopsy: Endocervical glandular mucosa with inflammation and scant squamous epithelium with reactive changes; negative for dysplasia. D. Cervix, 12:00, biopsy: Low-grade squamous intraepithelial lesion (mild dysplasia, GINO 1), focal endocervical glands present. Comment: The low-grade dysplasia present in the patient's previous Pap test ([id number]) concurs with the current biopsies [facility] Medical History (Updated 02/05/24 @ 09:32 by Moy Gar MD) LGSIL on Pap smear of cervix Family history of breast cancer in first degree relative Environmental allergies HTN (hypertension) Dysplasia of cervix, low grade (GINO 1) Surgical History No pertinent past surgical history Family History Mother History of breast cancer, Onset Age: 60 History of diabetes mellitus, type II Father Family history of high cholesterol Social History Housing: House Alcohol intake: current Alcohol intake frequency: holidays/special occasions only Patient Tobacco Use Status: Never used Tobacco e-Cigarette/Vaping Use: Never Used Second Hand Smoke Exposure: No service: No Current occupational status: unemployed Cognitive needs: No Hearing needs: No Vision needs: Yes (glasses) Review of Systems Const All systems reviewed & are unremarkable except as noted in HPI and below Reports as per HPI and Reports no additional complaints GI Reports no additional complaints Reports no additional complaints Telehealth Telehealth Telehealth Platform: Telephone Location of provider rendering services: practice address Location of patient: address on file Patient Identification confirmed using: Name, : Yes Telehealth method: video Patient verbally consented to treatment: Yes Patient verbally consented to billing insurance company: Yes Patient informed of any privacy concerns related to visit: Yes Assessment & Plan Assessment & Plan (1) Dysplasia of cervix, low grade (GINO 1): Comment: 12/18 LGSIL, colpo/bx/ecc= neg 01/19 LGSIL, colpo/bx/ecc= GINO I Code(s): N87.0 - Mild cervical dysplasia Category: Medical Plan: Discussed with the patient the pathology results of the colposcopy biopsies & endocervical curettage ( mild dysplasia-GINO 1). Discussed with the patient the sensitivity specificity, positive and negative predictive value in detecting cervical cancer in addition discussed the regression, persistence and progression rates. Recommended co-testing in 12 months, if cytology and or HPV are abnormal will proceed was colposcopy biopsy and endocervical curettage, if lesions gets worse or stays persistent for 2 years will proceed with loop electric excision procedure. Instructions given to the patient to schedule a co test appointment in 1 year. All questions answered the patient verbalized understanding. I spent a total of 20 minutes reviewing the chart, talking to the patient via video and documenting in the medical record. Coding Level of Care Code Tele Est Pt Level 3 (61694) Diagnoses Dysplasia of cervix, low grade (GINO 1) N87.0
== END 2024-02-05 09:34 | disposition home or self-care (01) ==
LOC: HO.HWS 09:22
PROVIDERS: PCP Physician Assistant; Visit Provider Obstetrics & Gynecology
DX: N87.0 Mild cervical dysplasia (principal)
CPT/HCPCS: 99213

== ENCOUNTER 2024-05-01 09:36 | Outpatient (AMB) | payer OTHER, SELFPAY ==
--- NOTE | 2024-05-01 09:44 | A.OFFPC_ITS ---
Vital Signs 05/01/24 09:47 Height 5 ft 11 in Weight 171 lb BMI 23.8 BP 130/86 Blood Pressure Location Lt brachial Position Sitting Pulse 80 Pulse Source Pulse Oximeter Pulse Oximetry (%) 98 Oxygen Delivery Method Room Air Intake Visit Reasons: f/u htn/ DMII Intake Note: Patient here for a follow up HTN, DM Rolled Materials Worker Required: Yes Rolled Materials Worker Language: Staff Weapons Officer Name: Tablet Used- ID [id number] Accompanied by: Self / Same As Patient Allergies ketorolac Allergy (Intermediate, Verified 05/01/24 10:00) Anaphylaxis aspirin Allergy (Verified 05/01/24 10:00) closed throat and itchy eyes Medication List - Last Reconciled 05/01/24 by Mario Mack PA-C losartan-hydrochlorothiazide 50-12.5 mg 1 tab PO DAILY 90 days miscellaneous medical supply (Blood Pressure Cuff) As directed Tobacco use date assessed: 05/01/24 Dental Screening Dental Screen Date: 05/01/24 Did you have a dental visit in the last 12 months?: Yes Did you have a dental problem in the last 6 months where you did not have access to dental care?: No Was dental information given to patient?: Patient has dentist HPI f/u htn/ DMII HPI Details Patient is a 34-year-old female here today for a follow-up visit.. ? Patient is Northern Irish-speaking only to which we have used a remote emergency response technician during this visit. ? Patient has a past medical history significant for to 2 diabetes ,HTN,? family history of breast cancer. Concerns--> no concerns today ..DMII:?Has been diet controlled. Now o ff of all diabetic medication. Does check her Blood sugar at home seldomly and report blood sugars 90 to 110.? Fasting Blood sugar 105. Most recent fasting blood sugar acceptable. Today's A1c below 6.5 Does see an eye doctor annually. .. Hypertension: Patient's blood pressure acceptable today in office. She continues on losartan hydrochlorothiazide with good effect. Goal blood pressures to remain below 140/90. [facility] Medical History LGSIL on Pap smear of cervix Family history of breast cancer in first degree relative Environmental allergies HTN (hypertension) Dysplasia of cervix, low grade (GINO 1) Surgical History No pertinent past surgical history Family History Mother History of breast cancer, Onset Age: 60 History of diabetes mellitus, type II Father Family history of high cholesterol Social History Housing: House Alcohol intake: current Alcohol intake frequency: holidays/special occasions only Patient Tobacco Use Status: Never used Tobacco e-Cigarette/Vaping Use: Never Used Second Hand Smoke Exposure: No service: No Current occupational status: employed Current occupational exposures/hazards: No Cognitive needs: No Hearing needs: No Vision needs: Yes (glasses) Questionnaire PHQ-9 Over the last 2 weeks, how often have you been bothered by any of the following problems? 1. Little interest or pleasure in doing things: not at all 2. Feeling down, depressed, or hopeless: not at all 3. Trouble falling or staying asleep, or sleeping too much: not at all 4. Feeling tired or having little energy: not at all 5. Poor appetite or overeating: not at all 6. Feeling bad about yourself - or that you are a failure or have let yourself or your family down: not at all 7. Trouble concentrating on things, such as reading the newspaper or watching television: not at all 8. Moving or speaking so slowly that other people could have noticed. Or the opposite - being so fidgety or restless that you have been moving around a lot more than usual: not at all 9. Thoughts that you would be better off or of hurting yourself in some way: not at all Total score: 0 Depression Screening Interpretation: Negative Depression Screening Done: Yes 24958 - PHQ-9 Billing: Yes Source: Developed by Drs. Girish Ibrahim, Patito Beasley, Mike Monroy and colleagues, with an educational miguel angel from [employer]. Thrive Questionnaire Date Thrive assessed: 05/01/24 I am a: Patient What is your living situation today?: I have a steady place to live Within the past 12 months, did the food you bought not last and you didn't have the money to get more?: Never true Within the past 12 months, did you worry whether your food would run out before you got money to buy more?: Never true Do you have trouble paying for medicines?: No Do you have trouble getting transportation to medical appointments?: No Do you have trouble paying your heating and electricity bill?: No Do you have trouble taking care of your child, family member or friend?: No Do you have trouble with day-to-day activities such as bathing, preparing meals, shopping, managing finances, etc.?: No Are you currently unemployed and looking for a job?: No Are you interested in more education?: No Please select the resources that you would like help with: None Currently or been in a relationship where the following occur: No concerns reported THRIVE Score: 0 AUDIT C Alcohol Use Questionnaire (AUDIT-C) 1. How often do you have a drink containing alcohol?: Monthly or less 2. How many drinks containing alcohol do you have on a typical day when you are drinking?: 1 or 2 3. How often do you have six or more drinks on one occasion?: Never Total Score: 1 SAMMY-7 AMB Questionnaire SAMMY-7 Date SAMMY - 7 assessed: 05/01/24 Feeling nervous, anxious, or on edge: 0 = Not at all Not being able to stop or control worryin = Not at all Worrying too much about different things: 0 = Not at all Trouble relaxin = Not at all Being so restless that it is hard to sit still: 0 = Not at all Becoming easily annoyed or irritable: 0 = Not at all Feeling afraid as if something awful might happen: 0 = Not at all Total SAMMY-7 score (0-4 normal; 5-9 mild; 10-14 moderate; 15-21 severe): 0 Source: Developed by Drs. Girish Ibrahim, Patito Beasley, Mike Monroy and colleagues, with an educational miguel angel from [employer]. SAMMY-7 Assessment Billing SAMMY-7 Assessment Tool: SAMMY-7 Assessment 64255 Review of Systems Const Denies headache(s) Eyes Denies loss of vision ENT Denies vertigo, Denies dizziness, Denies headache(s) and Denies sore throat Card Denies chest pain, Denies leg edema and Denies lightheadedness Resp Denies cough, Denies hemoptysis and Denies wheezing GI Denies abdominal pain, Denies melena, Denies constipation, Denies diarrhea and Denies vomiting Denies urinary frequency, Denies dysuria and Denies urinary urgency Musc Denies arthralgias, Denies joint swelling, Denies numbness and Denies tingling Neuro Denies Abnormal speech present, Denies behavioral changes, Denies vertigo, Denies dizziness, Denies headache(s), Denies loss of vision, Denies memory loss, Denies numbness and Denies tingling Psych Denies anxiety, Denies behavioral changes, Denies depression, Denies memory loss and Denies panic attacks Jono/Lymph Denies easy bleeding and Denies easy bruising Aller/Immun Denies wheezing Physical exam (Primary Care) Vital Signs: Last Vital Signs Pulse 80 05/01/24 09:47 BP 130/86 05/01/24 09:47 Pulse Ox 98 05/01/24 09:47 Oxygen Delivery Method Room Air 05/01/24 09:47 BMI result Body Mass Index 23.8 Tobacco/Smoking Status: Tobacco use Status Tobacco use date assessed 05/01/24 05/01/24 09:53 Patient Tobacco Use Status Never used Tobacco 05/01/24 09:45 e-Cigarette/Vaping Use Never Used 05/01/24 09:45 PHQ-9: PHQ-9 Score PHQ-9: Total score 0 05/01/24 09:53 Depression Screening Interpretation: Negative Thrive Assessment: Date of Thrive Assessment Date Thrive assessed 05/01/24 05/01/24 09:53 Currently or been in a relationship where the following occur: No concerns reported Const General: healthy appearing, no acute distress, alert and awake Nutritional Appearance: well nourished Orientation/consciousness: oriented to person, oriented to place and oriented to time HENMT Ears: TM's normal bilaterally General nose exam: Normal nasal mucous membranes and turbinates present Eyes Conjunctivae: conjunctivae normal Sclerae: sclerae normal Pupils: Equal, round and reactive pupils present Neck Neck: Yes no lymphadenopathy and Yes no JVD Thyroid: Thyroid normal Carotids: no bruits Resp Effort & Inspection: normal respiratory effort and not tachypneic Auscultation: no crackles, no rales, no rhonchi and no wheezes Cardio Rate: regular rate Rhythm: regular rhythm Heart sounds: no murmurs and normal S1 and S2 GI Palpation (GI): Soft to palpation, nontender, no hepatomegaly and no splenomegaly Auscultation: normal bowel sounds Skin General skin exam: no rashes or lesions noted and dry skin Neuro General: oriented to person, oriented to place and oriented to time Cranial nerves: Yes Equal, round and reactive pupils present Speech: No Abnormal speech present Gait exam (Neuro): Normal gait present Motor exam (neuro): no tremor noted Extrem Right upper extremity: full ROM Left upper extremity: full ROM Right lower extremity: full ROM; no edema Left lower extremity: full ROM; no edema Psych Mental Status: mental status grossly normal Speech and movement: Normal speech and movement present Affect: normal affect Attitude: cooperative Thought process: Normal thought process present Coding Level of Care Code Est Pt Level 4 (69348) Diagnoses Type 2 diabetes mellitus with hyperglycemia, without long-term current use of insulin E11.65 Diabetes mellitus prison insulin use: without prison use Diabetes mellitus complication status: with hyperglycemia Essential hypertension I10 Hypertension type: essential hypertension Additional Codes PHQ-9 - 05137 - PHQ-9 Billing: Yes ([id number]) SAMMY-7 Assessment Billing - SAMMY-7 Assessment Tool: SAMMY-7 Assessment 26311 ([id number]) Assessment & Plan Assessment & Plan (1) Type 2 diabetes mellitus: Code(s): E11.9 - Type 2 diabetes mellitus without complications Category: Medical Qualifiers: Diabetes mellitus prison insulin use: without long term care phlebotomist use Diabetes mellitus complication status: with hyperglycemia Qualified Code(s): E11.65 - Type 2 diabetes mellitus with hyperglycemia Plan: Patient's type 2 diabetes well controlled with dietary modifications. She is now off of all oral antihyperglycemic medication. She will continue to control her type 2 diabetes with diet and exercise. Goal A1c is to remain below 6.5 (2) HTN (hypertension): Code(s): I10 - Essential (primary) hypertension Category: Medical Qualifiers: Hypertension type: essential hypertension Qualified Code(s): I10 - Essential (primary) hypertension Plan: Patient's blood pressure acceptable today in office. She continues on losartan hydrochlorothiazide with good effect. . Advised to monitor blood pressure at home with goal blood pressure to be below 140/90 Patient Instructions: Goal: A1c to remain below 6.5, blood pressure to remain below 140/90 Barriers: Adherence to physical activity and healthy eating habits
[2024-05-01 09:47] VITALS: BP 130/86; PULSE 80; O2SAT 98; BMI 23.8
--- OUTSIDE RECORDS SUMMARY | 2024-05-01 10:55 | XMS_ITS | Clinical Summary ---
Author Organization [facility] Address [address] [place] [address] Phone Care Team Providers Care Break Off Worker Name Role Phone Mario Mack Primary Care Provider Social History Tobacco Use Types Packs/Day Years Used Date Smoking Tobacco: Never Assessed Comments Unknown Sex and Gender Information Value Date Recorded Sex Assigned at Female 01/28/2024 3:37 PM EST Legal Sex Female 3:57 PM EDT Gender Identity Female 01/28/2024 3:37 PM EST Sexual Orientation Straight 01/28/2024 3: 37 PM EST Plan of Treatment Health Maintenance Due Date Last Done Comments Hepatitis B Vaccines (1 of 3 - 19+ 3-dose series) 01/30/2007 Cervical Cancer Screening: P ap Smear 01/30/2009 COVID-19 Vaccine (2023-2 5 season) 2023 08/30/2020, 08/08/2020 Influenza Vaccine (#1) 2023 12/22/2022 Depression Screening 12/25/2023 HIV Screening 12/25/2023 Hepatitis C Screening 12/25/2023 Social Influencers of Health Screening 12/25/2023 DTaP,Tdap,and Td Vaccines (2 - Td or Tdap) 04/11/2031 04/11/2021 Pneumococcal Vaccine: Pediatrics (0 to 5 Years) and At-Risk Patients (6 to 64 Years) Aged Out 05/04/2022 No longer eligible b ased on patient's age to complete this topic HIB Vaccines Aged Out No longer eligi ble based on patient's age to complete this topic HPV Vaccines Aged Out No longer eligi ble based on patient's age to complete this topic Hepatitis A Vaccines Aged Out No long er eligible based on patient's age to complete this topic IPV Vaccines Aged Out No longer eligi ble based on patient's age to complete this topic MMR Vaccines Aged Out No longer eligi ble based on patient's age to complete this topic Meningococcal ACWY Vaccine Aged Out N o longer eligible based on patient's age to complete this topic Meningococcal B Vacine Aged Out No lo nger eligible based on patient's age to complete this topic RSV Immunization Patients Under 20 months Aged Out No longer eligible b ased on patient's age to complete this topic Varicella Vaccines Aged Out No longer eligible based on patient's age to complete this topic Insurance [facility] PLAN Care Teams Break Off Worker Relationship Specialty Start Date End Date Mario Mack PA PCP - General Physician Second Hand Paper Machine 01/28/24
== END 2024-05-01 10:17 | disposition home or self-care (01) ==
PROVIDERS: PCP Physician Assistant; Visit Provider Physician Assistant
DX: E11.65 Type 2 diabetes mellitus with hyperglycemia (principal); I10 Essential (primary) hypertension

== ENCOUNTER → 2024-05-01 09:36 | Outpatient (BNVA) | payer OTHER, SELFPAY | PROVIDERS: PCP Physician Assistant; Visit Provider Physician Assistant | DX: E11.65 Type 2 diabetes mellitus with hyperglycemia (principal); I10 Essential (primary) hypertension | CPT/HCPCS: 96127; 99212 ==

== ENCOUNTER 2024-05-08 14:44 | Outpatient (AMB) | payer OTHER, SELFPAY ==
[2024-05-08 14:56] VITALS: BP 130/90; PULSE 72; BMI 23.8
--- NOTE | 2024-05-08 14:56 | A.OFFVIS_ITS ---
Vital Signs 05/08/24 14:56 Height 5 ft 11 in Weight 170 lb 10.205 oz BMI 23.8 BP 130/90 H Blood Pressure Location Lt brachial Position Sitting Pulse 72 Pulse Source Pulse Oximeter Intake Visit Reasons: 6m follow up/ Tilt Junior Buyer Required: Yes Junior Buyer Name: voice alexander [id number] Allergies ketorolac Allergy (Intermediate, Verified 05/08/24 14:58) Anaphylaxis aspirin Allergy (Verified 05/08/24 14:58) closed throat and itchy eyes Medication List - Last Reconciled 05/08/24 by Halle Bashir, BOOSTER STATION OPERATOR-C losartan-hydrochlorothiazide 50-12.5 mg 1 tab PO DAILY 90 days miscellaneous medical supply (Blood Pressure Cuff) As directed HPI HPI 6m follow up/ Tilt: Details: Karsten is a 33-year-old female with past medical history of syncopal episodes. Last episode 10/2022 at which time she was admitted to [facility] with tiny subarachnoid bleed. Cardiac evaluation showed no clear finding for her syncopal events. Today she reports that she that she had 1 episode lightheadedness in February 2024. She was able to recognize the symptom and sit down and wait for it to pass. She has not had any recurrent syncope. She is undergoing neurological testing and has a follow-up with Neurology on 05/12/2024. She again does not recall any known triggers or significant symptoms prior to her events. 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 She maintains good hydration. She is compliant with her medications. No chest discomfort, shortness of breath, lightheadedness, recent falls. She does only light physical activities. [facility] Medical History LGSIL on Pap smear of cervix Family history of breast cancer in first degree relative Environmental allergies HTN (hypertension) Dysplasia of cervix, low grade (GINO 1) Surgical History No pertinent past surgical history Family History Mother History of breast cancer, Onset Age: 60 History of diabetes mellitus, type II Father Family history of high cholesterol Social History Housing: House Alcohol intake: current Alcohol intake frequency: holidays/special occasions only Patient Tobacco Use Status: Never used Tobacco e-Cigarette/Vaping Use: Never Used Second Hand Smoke Exposure: No service: No Current occupational status: employed Current occupational exposures/hazards: No Cognitive needs: No Hearing needs: No Vision needs: Yes (glasses) Review of Systems Const All systems reviewed & are unremarkable except as noted in HPI and below ENT Denies dizziness Card Denies chest pain, Denies chest pain at rest, Denies chest pain with activity, Denies rapid heart rate, Denies pedal edema, Denies edema, Denies leg edema, Denies lightheadedness, Denies palpitations, Denies dyspnea, Denies dyspnea on exertion and Denies orthopnea Resp Denies cough, Denies dyspnea and Denies dyspnea on exertion GI Denies hematochezia and Denies change in stool character Musc Denies abnormal gait, Denies limited range of motion, Denies muscle weakness, Denies numbness, Denies radiating pain into limb, Denies stiffness and Denies tingling Neuro Denies abnormal gait, Denies dizziness, Denies numbness and Denies tingling Endo Denies palpitations Physical Exam Vital Signs: Last Vital Signs Pulse 72 05/08/24 14:56 BP 130/90 H 05/08/24 14:56 BMI result Body Mass Index 23.8 Const General: cooperative, healthy appearing, comfortable and no acute distress Orientation/consciousness: patient oriented x3 Neck Neck: Yes normal visual inspection Resp Effort & Inspection: normal respiratory effort Auscultation: clear to auscultation bilaterally, no crackles, no rales, no rhonchi and no wheezes Cardio Rate: regular rate Rhythm: regular rhythm Heart sounds: S1 normal heart sound present, S2 normal heart sound present, no murmurs and no rubs Neuro General: patient oriented x3 Extrem General: Yes normal to inspection, No no pedal edema and No calf tenderness Psych Appearance: grossly normal Mental Status: mental status grossly normal Speech and movement: Normal speech and movement present Assessment & Plan Assessment & Plan (1) Syncope: Code(s): R55 - Syncope and collapse Category: Medical Qualifiers: Syncope type: vasovagal syncope Qualified Code(s): R55 - Syncope and collapse Plan: History of syncopal events when she was in [place] and here [place] the [place] Her last episode was 10/2022 prompting admission to [facility] where she was found to have a tiny subarachnoid bleed. Per [facility] imaging, tiny focus of high density in the right frontal lobe, thought to be either apparent cranial or subarachnoid bleed. CTA head showed no acute intracranial lesions. Carotid/vertebral arteries were also unremarkable. An echocardiogram was unremarkable, EF 55-60%. Her EKG has no evidence of prolonged QT interval, Brugada or other arrhythmia inducing syndromes. Holter monitor was done 01/12/2023 for 3 days which showed sinus rhythm with average heart rate 84, heart rate range 50 to 151, no significant pauses or arrhythmias. Hypotension was not felt to be a cause as her blood pressure tends to run high. She is on losartan. She did have a tilt-table test on 01/29/2024 which was negative. She is currently undergoing neurological evaluation and has follow-up on 05/12/2024. Will plan few that no in determine if further evaluation from our end is needed. As of this time there is no known cardiac reason for her presyncope/syncope. Her episodes could be vasovagal. Reviewed good hydration and recognizing the warning signs of presyncope/syncope and get herself in a sitting or laying down position. Cardiology follow-up as needed. (2) Palpitations: Code(s): R00.2 - Palpitations Category: Medical Plan Time spent on chart review, documentation, interview and assessment Coding Level of Care Code Est Pt Level 3 (25723) Complex EM visit Add On G2211 Diagnoses Vasovagal syncope R55 Syncope type: vasovagal syncope Palpitations R00.2 Time Spent (min) 24
--- OUTSIDE RECORDS SUMMARY | 2024-05-08 18:33 | XMS_ITS | Clinical Summary ---
Author Organization [facility] Address [address] [place] [address] Phone Care Team Providers Care Picking Crew Supervisor Name Role Phone Mario Mack Primary Care Provider [phone] Social History Tobacco Use Types Packs/Day Years [...] Screening: P ap Smear 01/30/2009 COVID-19 Vaccine ( - 2023-2 5 season) 2023 08/30/2020, 08/08/2020 Influenza Vaccine [...] patient's age to complete this topic Insurance [facility] PLAN Care Teams Picking Crew Supervisor Relationship Specialty Start Date End Date Mario Mack PA PCP - General Physician Thread Twister 01/28/24
== END 2024-05-08 15:42 | disposition home or self-care (01) ==
LOC: HO.HCS 14:45
PROVIDERS: PCP Physician Assistant; Visit Provider Nurse Practitioner Family
DX: R55 Syncope and collapse (principal); R00.2 Palpitations
CPT/HCPCS: 99213; G2211

== ENCOUNTER → 2024-05-08 14:44 | Outpatient (BNVA) | payer OTHER, SELFPAY | PROVIDERS: PCP Physician Assistant; Visit Provider Nurse Practitioner Family | DX: R55 Syncope and collapse (principal); R00.2 Palpitations | CPT/HCPCS: 99212 ==

== ENCOUNTER 2024-06-04 13:00 | Outpatient (REF) | payer OTHER, SELFPAY ==
--- OUTSIDE RECORDS SUMMARY | 2024-06-04 16:23 | XMS_ITS | Clinical Summary ---
Author Organization [facility] Address [address] [place] [address] Phone Care Team Providers Care Coil Winder Repair Name Role Phone Mario Mack Primary Care [...] patient's age to complete this topic Insurance [facility] PLAN Care Teams Coil Winder Repair Relationship Specialty Start Date End Date Mario Mack PA PCP - General Physician Business Applications Manager 01/28/24
== END 2024-06-04 13:01 | disposition home or self-care (01) ==
LOC: HO.LAB 13:00
PROVIDERS: PCP Physician Assistant; Visit Provider Advanced Practice Midwife
DX: Z31.69 Encounter for other general counseling and advice on procreation (principal); R87.612 Low grade squamous intraepithelial lesion on cytologic smear of cervix (LGSIL); E11.65 Type 2 diabetes mellitus with hyperglycemia; N93.9 Abnormal uterine and vaginal bleeding, unspecified; I10 Essential (primary) hypertension
CPT/HCPCS: 81025; 99212

== ENCOUNTER 2024-06-04 13:00 | Outpatient (AMB) | payer OTHER, SELFPAY ==
[2024-06-04 13:09] VITALS: BP 128/74; BMI 24.1
--- NOTE | 2024-06-04 13:09 | A.OFFVIS_ITS ---
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 [employer] Present Information Interpreted: clinical only Granulating Blender: Granulating Blender Present Allergies ketorolac Allergy (Intermediate, Verified 06/04/24 13:10) Anaphylaxis aspirin Allergy (Verified 06/04/24 13:10) closed throat and itchy eyes Medication List - Last Reconciled 06/04/24 by Lolly Potts CNM losartan-hydrochlorothiazide 50-12.5 mg 1 tab PO DAILY 90 days miscellaneous medical supply (Blood Pressure Cuff) As directed Is last menstrual period known: Yes Last menstrual period: 04/25/24 HPI HPI Vaginal itch: Details: Patient is complaining of vaginal itching that is started on Sunday today is Sunday. Patient is also aware that her period is a day or 2 late so she requested a test which was done and is negative I asked what she was using for control and the patient told me she is actually trying to get . I inquired about any other health problems and it 1st she said no and when I specifically asked about any high blood pressure or diabetes she admits that she does have high blood pressure and she is diabetic her blood pressure has been well-controlled with losartan And she says her diabetes is well-controlled and she does not need any pills or a medicine or anything she lost from about 227 lb to her 170 something lb today. I did review her past abnormal Pap smear from December with follow-up colposcopy in January which showed GINO 1 and the plan to repeat with Co testing in 1 year. Majority of this visit then was spent discussing her high blood pressure and diabetes and the risks for a pending possible future and the need to discuss these issues with her primary care provider and discuss possibly changing the medication to something that would be compatible with a . Discussed in particular also that while her blood sugars of about 130 might be considered in the good range non that in the standard would be 90 for fasting and 120 for postprandial blood sugars. Discussed that if she became she would need to initiate care immediately at [facility] so that early management of her diabetes and hypertension could be coordinated. She is also allergic to aspirin so she would not be able to take baby aspirin prophylactically. [facility] Medical History (Updated 06/04/24 @ 14:08 by Lolly Potts CNM) Dysplasia of cervix, low grade (GINO 1) LGSIL on Pap smear of cervix Family history of breast cancer in first degree relative Environmental allergies HTN (hypertension) Surgical History No pertinent past surgical history Family History Mother History of breast cancer, Onset Age: 60 History of diabetes mellitus, type II Father Family history of high cholesterol Social History Housing: House Alcohol intake: current Alcohol intake frequency: holidays/special occasions only Patient Tobacco Use Status: Never used Tobacco e-Cigarette/Vaping Use: Never Used Second Hand Smoke Exposure: No service: No Current occupational status: employed Current occupational exposures/hazards: No Cognitive needs: No Hearing needs: No Vision needs: Yes (glasses) Female Reproductive History Menstrual Age of Menarche: 10 Duration of menses: 3-5 days Date of last menstrual period: 04/25/24 control method: none Full term: 0 History of abnormal pap smear: Yes Physical Exam Vital Signs: Last Vital Signs BP 128/74 06/04/24 13:09 BMI result Body Mass Index 24.1 Other: Labia minora and inside of labia majora dusky pink consistent with mild yeast infection scant clear and whitish discharge consistent with yeast vagina pink and moist with just some scant kids consistent with yeast cervix within normal limits. Results Reviewed Results Reviewed: Her past Pap the colposcopy results which showed dysplasia GINO 1 from January 2024 and the plan to repeat with Co testing next December test today is negative. Assessment & Plan Assessment & Plan (1) LGSIL on Pap smear of cervix: Comment: HPV high-risk positive, HPV 16/18 negative; 02/01/2024 colposcopy equals GINO 1--- repeat co testing 1 year. Code(s): R87.612 - Low grade squamous intraepithelial lesion on cytologic smear of cervix (LGSIL) Category: Medical (2) Type 2 diabetes mellitus: Comment: See note Code(s): E11.9 - Type 2 diabetes mellitus without complications Category: Medical Qualifiers: Diabetes mellitus alf insulin use: without alf use Diabetes mellitus complication status: with hyperglycemia Qualified Code(s): E11.65 - Type 2 diabetes mellitus with hyperglycemia (3) Abnormal uterine bleeding (AUB): Code(s): N93.9 - Abnormal uterine and vaginal bleeding, unspecified Category: Medical (4) HTN (hypertension): Comment: Patient is on losartan/hydrochlorothiazide, see note... Code(s): I10 - Essential (primary) hypertension Category: Medical Qualifiers: Hypertension type: essential hypertension Qualified Code(s): I10 - Essential (primary) hypertension (5) Pre-conception counseling: Comment: Has hypertension on meds, diabetes, 34 years old.... Code(s): Z31.69 - Encounter for other general counseling and advice on procreation Category: Medical Plan Patient is complaining of vaginal itching that is started on Sunday today is Sunday. Patient is also aware that her period is a day or 2 late so she requested a test which was done and is negative I asked what she was using for control and the patient told me she is actually trying to get . I inquired about any other health problems and it 1st she said no and when I specifically asked about any high blood pressure or diabetes she admits that she does have high blood pressure and she is diabetic her blood pressure has been well-controlled with losartan And she says her diabetes is well-controlled and she does not need any pills or a medicine or anything she lost from about 227 lb to her 170 something lb today. I did review her past abnormal Pap smear from December with follow-up colposcopy in January which showed GINO 1 and the plan to repeat with Co testing in 1 year. Majority of this visit then was spent discussing her high blood pressure and diabetes and the risks for a pending possible future and the need to discuss these issues with her primary care provider and discuss possibly changing the medication to something that would be compatible with a . Discussed in particular also that while her blood sugars of about 130 might be considered in the good range non that in the standard would be 90 for fasting and 120 for postprandial blood sugars. Discussed that if she became she would need to initiate care immediately at [facility] so that early management of her diabetes and hypertension could be coordinated. She is also allergic to aspirin so she would not be able to take baby aspirin prophylactically. She has evidence of a very mild yeast infection which would be completely in keeping with having some elevated blood sugars in the 130 range discussed the interplay between diabetes and yeast infections and why there more common with diabetes. As she is not at this time she is feeling cramping consistent with upcoming menses I can go ahead and prescribe Diflucan for her today that she can repeat in 3 days if she is still getting itching. And I can prescribe Monistat cream for her as well which she could use it any time. Discussed that if she did become Diflucan would be contraindicated. Again reviewed that she should review her plans with her primary care provider and have a discussion about her losartan. In addition I offered her vitamins as she is intending at some point in the future and initially she declined but then she accepted discussed the importance of taking folic acid pre . Discussed general care for the yeast which is mild but which can be very uncomfortable. I also pre reviewed what some of the management issues and plans might be for a with pre-existing diabetes and hypertension in terms of screening and testing and concerns so she is aware of some of the issues she has contemplating. Medications: New miconazole nitrate 2% (Miconazole-7) 1 appful vaginal BEDTIME 7 days 45 grams 3RF PNV,calcium 16-oblh-unohu acid 27 mg iron- 1 mg ( Vitamins Plus Low Iron) 1 tab PO DAILY 90 tabs 0RF fluconazole may repeat second dose 72 hrs after first dose if symptoms persist 150 mg PO Q3D 2 doses 2 tabs 0RF Coding Level of Care Code Est Pt Level 3 (78160) Diagnoses LGSIL on Pap smear of cervix R87.612 Type 2 diabetes mellitus with hyperglycemia, without long-term current use of insulin E11.65 Diabetes mellitus terminal make up operator insulin use: without terminal make up operator use Diabetes mellitus complication status: with hyperglycemia Abnormal uterine bleeding (AUB) N93.9 Essential hypertension I10 Hypertension type: essential hypertension Pre-conception counseling Z31.69 Time Spent (min) 40 Comment preconception couns w of DM and HTN
--- OUTSIDE RECORDS SUMMARY | 2024-06-04 15:05 | XMS_ITS | Clinical Summary ---
Author Organization [facility] Address [address] [place] [address] Phone Care Team Providers Care Lead Tinner Name Role Phone Mario Mack Primary Care [...] age to complete this topic Meningococcal B Vaccine Aged Out No l onger eligible based on patient's age to complete this topic RSV Immunization Patients Under 20 months Aged Out No longer eligible b ased on patient's age to complete this topic Varicella Vaccines Aged Out No longer eligible based on patient's age to complete this topic Insurance [facility] PLAN Care Teams Lead Tinner Relationship Specialty Start Date End Date Mario Mack PA PCP - General Physician Automatic Thread Winder 01/28/24
== END 2024-06-04 14:04 | disposition home or self-care (01) ==
LOC: HO.HWSM 13:02
PROVIDERS: PCP Physician Assistant; Visit Provider Advanced Practice Midwife
DX: R87.612 Low grade squamous intraepithelial lesion on cytologic smear of cervix (LGSIL) (principal); E11.65 Type 2 diabetes mellitus with hyperglycemia; N93.9 Abnormal uterine and vaginal bleeding, unspecified; I10 Essential (primary) hypertension; Z31.69 Encounter for other general counseling and advice on procreation; Z32.02 Encounter for pregnancy test, result negative
CPT/HCPCS: 99213

== ENCOUNTER 2024-11-07 10:14 | Outpatient (REF) | payer OTHER, SELFPAY ==
[2024-11-07 10:58] LABS: Hematocrit 36.8 % (37.0-47.0); Hemoglobin 12.2 g/dl (12.0-16.0); Mean Corpuscular HGB Conc 33.2 g/dl (31.0-35.0); Mean Corpuscular Hemoglobin 29.6 pg (27.0-33.0); Mean Corpuscular Volume 89.3 fL (80.0-98.0); NRBC Abs Auto 0.000 X10*3/uL (0.0-0.012); NRBC Pct Auto 0.0 /100WBC (0.0-0.2); Platelet Count 332 X10*3/uL (160-400); Red Blood Count 4.12 X10*6/uL (4.20-5.50); White Blood Count 7.0 X10*3/uL (4.8-10.8)
[2024-11-07 11:12] LABS: Hemoglobin A1C 125.6414 umol/L; Total Hemoglobin (HGBA1C) 3126.5901 umol/L
--- OUTSIDE RECORDS SUMMARY | 2024-11-07 11:40 | XMS_ITS | Clinical Summary ---
Author Organization [facility] Address [address] [place] [address] Phone Care Team Providers Care Shank Cementer Hand Name Role Phone Mario Mack Primary Care [...] Cervical Cancer Screening: P ap Smear 01/30/2009 HIV Screening 12/25/2023 Hepatitis C Screening 12/25/2023 Social Influencers of Health Screening 12/25/2023 Depression Screening 02/27/2024 COVID-19 Vaccine (3 - 2024-2 6 season) 2024 08/30/2020, 08/08/2020 Influenza Vaccine (#1) 2024 12/22/2022 DTaP,Tdap,and Td Vaccines (2 - Td or Tdap) 04/11/2031 04/11/2021 Pneumococcal Vaccine: Pediatrics (0 to 5 Years) and At-Risk Patients (6 to 49 Years) Aged Out 05/04/2022 No longer eligible [...] patient's age to complete this topic Insurance [facility] [place] [address] Care Teams Shank Cementer Hand Relationship Specialty Start Date End Date Mario Mack PA PCP - General Physician Parimutuel Cashier 01/28/24
[2024-11-07 11:44] LABS: Alanine Aminotransferase 15 U/L (0-31); Albumin Level 4.5 g/dL (3.5-5.0); Alkaline Phosphatase 52 U/L (39-117); Anion Gap 12 (12-20); Aspartate Amino Transferase 15 U/L (5-31); Blood Urea Nitrogen 14 mg/dL (9-16); Calcium 9.6 mg/dL (8.4-10.2); Carbon Dioxide 27 mmol/L (22-29); Chloride 105 mmol/L (96-108); Estimated Glomerular Filt Rate > 60; Potassium 3.7 mmol/L (3.3-5.1); Sodium 140 mmol/L (135-145); Total Protein 7.5 g/dL (6.5-8.0)
[2024-11-07 13:38] LABS: Microalbum/Creatinine Ratio Ur 3.9 ug/mg cr (<30)
== END 2024-11-07 10:15 | disposition home or self-care (01) ==
LOC: HO.XRAY 10:14
PROVIDERS: PCP Physician Assistant; Visit Provider Physician Assistant
DX: E11.65 Type 2 diabetes mellitus with hyperglycemia (principal); I10 Essential (primary) hypertension
CPT/HCPCS: 36415; 80053; 82043; 82570; 83036; 85027

== ENCOUNTER 2024-11-13 08:54 | Outpatient (AMB) | payer OTHER, SELFPAY ==
--- NOTE | 2024-11-13 09:01 | MHC.PC.OV ---
Vital Signs 11/13/24 09:02 Height 5 ft 11 in Weight 171 lb 6 oz BMI 23.9 BP 110/72 Blood Pressure Location Lt brachial Position Sitting Pulse 77 Pulse Source Pulse Oximeter Temp 97.1 F Temp Source Temporal Artery Scan Pulse Oximetry (%) 99 Oxygen Delivery Method Room Air Intake Visit Reasons: Annual exam- A1C needed Intake Note: Patient is here today for a physical. Hand Cultivator Required: Yes Hand Cultivator Language: Polysilicon Preparation Worker Name: Rishi ([id number]) Information Interpreted: non-clinical & clinical Manager Telemarketing: Not Required per policy Accompanied by: Self / Same As Patient Allergies ketorolac Allergy (Intermediate, Verified 11/13/24 09:14) Anaphylaxis aspirin Allergy (Verified 11/13/24 09:14) closed throat and itchy eyes Medication List - Last Reconciled 11/13/24 by Mario Mack PA-C losartan-hydrochlorothiazide 50-12.5 mg 1 tab PO DAILY 90 days miscellaneous medical supply (Blood Pressure Cuff) As directed PNV,calcium 06-yffk-gallv acid 27 mg iron- 1 mg ( Vitamins Plus Low Iron) 1 tab PO DAILY Tobacco use date assessed: 11/13/24 Dental Screening Dental Screen Date: 05/01/24 HPI Annual exam- A1C needed HPI Details Patient is a 34-year-old female here today for a routine annual physical ? Patient is Divehi-speaking only to which we have used a remote american sign language interpreter during this visit. ? Patient has a past medical history significant for to 2 diabetes ,HTN,? family history of breast cancer. Concerns--> back pain, no reports of recent trauma. she is willing to get x-ray. She is willing to do physical therapy and try a muscle relaxer as needed for her back pain. ..DMII:?Has been diet controlled. Now off of all diabetic medication. Does check her Blood sugar at home seldomly and report blood sugars 90 to 110.? Fasting Blood sugar 105. Most recent fasting blood sugar acceptable. most recent a1c- 5.8 Does see an eye doctor annually. .. Hypertension: Patient's blood pressure acceptable today in office. She continues on losartan hydrochlorothiazide with good effect. Goal blood pressures to remain below 140/90. 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: Followed by Vani design coordinator- HAS GINO-1 , she is up-to-date with Pap Laboratory Tests 11/12/23 01/30/24 11/07/24 09:22 16:13 10:28 RBC 4.12 L Hgb 12.2 Creatinine 0.96 Fasting Glucose 101 H Hgb A1c (Clinic) 5.3 Hemoglobin A1c % 5.4 5.8 Cholesterol 176 Urine Microalbumin 11/07/24 Unknown RBC Hgb Creatinine Fasting Glucose Hgb A1c (Clinic) Hemoglobin A1c % Cholesterol Urine Microalbumin 15.0 [facility] Medical History Dysplasia of cervix, low grade (GINO 1) LGSIL on Pap smear of cervix Family history of breast cancer in first degree relative Environmental allergies HTN (hypertension) Surgical History No pertinent past surgical history Family History Mother History of breast cancer, Onset Age: 60 History of diabetes mellitus, type II Father Family history of high cholesterol Social History (Updated 11/13/24 @ 09:18 by Mario Mack PA-C) Housing: House Alcohol intake: current Alcohol intake frequency: holidays/special occasions only Patient Tobacco Use Status: Never used Tobacco e-Cigarette/Vaping Use: Never Used Second Hand Smoke Exposure: No service: No Current occupational status: employed 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 1. Little interest or pleasure in doing things: not at all 2. Feeling down, depressed, or hopeless: not at all 3. Trouble falling or staying asleep, or sleeping too much: not at all 4. Feeling tired or having little energy: not at all 5. Poor appetite or overeating: not at all 6. Feeling bad about yourself - or that you are a failure or have let yourself or your family down: not at all 7. Trouble concentrating on things, such as reading the newspaper or watching television: not at all 8. Moving or speaking so slowly that other people could have noticed. Or the opposite - being so fidgety or restless that you have been moving around a lot more than usual: not at all 9. Thoughts that you would be better off or of hurting yourself in some way: not at all Total score: 0 Depression Screening Interpretation: Negative Depression Screening Done: Yes 60922 - PHQ-9 Billing: Yes Source: Developed by Drs. Girish Ibrahim, Patito Beasley, Mike Monory and colleagues, with an educational miguel angel from [employer]. Thrive Questionnaire Date Thrive assessed: 05/01/24 I am a: Patient What is your living situation today?: I choose not to answer this question Within the past 12 months, did the food you bought not last and you didn't have the money to get more?: I choose not to answer this question Within the past 12 months, did you worry whether your food would run out before you got money to buy more?: I choose not to answer this question Do you have trouble paying for medicines?: I choose not to answer this question Do you have trouble getting transportation to medical appointments?: I choose not to answer this question Do you have trouble paying your heating and electricity bill?: I choose not to answer this question Do you have trouble taking care of your child, family member or friend?: I choose not to answer this question Do you have trouble with day-to-day activities such as bathing, preparing meals, shopping, managing finances, etc.?: I choose not to answer this question Are you currently unemployed and looking for a job?: I choose not to answer this question Are you interested in more education?: I choose not to answer this question Please select the resources that you would like help with: None Currently or been in a relationship where the following occur: I choose not to answer THRIVE Score: 0 AUDIT C Alcohol Use Questionnaire (AUDIT-C) 1. How often do you have a drink containing alcohol?: Never Total Score: 0 SAMMY-7 AMB Questionnaire SAMMY-7 Date SAMMY - 7 assessed: 05/01/24 Feeling nervous, anxious, or on edge: 0 = Not at all Not being able to stop or control worryin = Not at all Worrying too much about different things: 0 = Not at all Trouble relaxin = Not at all Being so restless that it is hard to sit still: 0 = Not at all Becoming easily annoyed or irritable: 0 = Not at all Feeling afraid as if something awful might happen: 0 = Not at all Total SAMMY-7 score (0-4 normal; 5-9 mild; 10-14 moderate; 15-21 severe): 0 Source: Developed by Drs. Girish Ibrahim, Patito Beasley, Mike Monroy and colleagues, with an educational miguel angel from [employer]. SAMMY-7 Assessment Billing SAMMY-7 Assessment Tool: SAMMY-7 Assessment 33580 Review of Systems Const Denies body aches, Denies chills, Denies excessive sweating, Denies fatigue, Denies fever(s) and Denies headache(s) Eyes Denies blurry vision ENT Denies dysphagia, Denies vertigo, Denies dizziness, Denies headache(s), Denies hearing loss and Denies tinnitus Card Denies chest pain, Denies chest pain with activity, Denies syncope, Denies irregular heart rhythm and Denies dyspnea Resp Denies chest congestion, Denies cough, Denies hemoptysis, Denies dyspnea and Denies wheezing GI Denies abdominal pain, Denies melena, Denies hematochezia, Denies coffee ground emesis, Denies dysphagia, Denies diarrhea, Denies nausea and Denies vomiting Denies urinary frequency, Denies dysuria, Denies urinary hesitancy and Denies urinary urgency Musc Denies arthralgias, Denies limited range of motion, Denies muscle cramps and Denies muscle weakness Skin/Breast Denies rash and Denies skin ulcer Neuro Denies Abnormal speech present, Denies confusion, Denies vertigo, Denies dizziness, Denies syncope, Denies headache(s), Denies memory loss and Denies seizure-like activity Psych Denies anxiety, Denies confusion, Denies depression, Denies memory loss, Denies panic attacks and Denies paranoia Endo Denies excessive sweating, Denies fatigue, Denies flushing, Denies polydipsia and Denies polyuria Aller/Immun Denies wheezing Physical exam (Primary Care) Vital Signs: Last Vital Signs Temp 97.1 F 11/13/24 09:02 Pulse 77 11/13/24 09:02 BP 110/72 11/13/24 09:02 Pulse Ox 99 11/13/24 09:02 Oxygen Delivery Method Room Air 11/13/24 09:02 BMI result Body Mass Index 23.9 Tobacco/Smoking Status: Tobacco use Status Tobacco use date assessed 11/13/24 11/13/24 09:11 Patient Tobacco Use Status Never used Tobacco 11/13/24 09:11 e-Cigarette/Vaping Use Never Used 11/13/24 09:11 PHQ-9: PHQ-9 Score PHQ-9: Total score 0 11/13/24 09:11 Depression Screening Interpretation: Negative Thrive Assessment: Date of Thrive Assessment Date Thrive assessed 05/01/24 11/13/24 09:11 Currently or been in a relationship where the following occur: I choose not to answer Const General: cooperative, comfortable, no acute distress, alert and awake; No confusion Orientation/consciousness: oriented to person, oriented to place, patient oriented x3 and No confusion HENMT Head: Yes normocephalic Ears: external ears normal and TM's normal bilaterally Face and sinus: No sinus tenderness Mouth: Normal oral and palatal mucosa present and tongue normal Teeth and gingiva: dentition normal and gingiva normal Throat: Yes posterior oropharynx normal, Yes tonsils normal and Yes uvula midline Eyes Conjunctivae: conjunctivae normal Sclerae: sclerae normal Pupils: Equal, round and reactive pupils present EOM: EOMs intact bilaterally Direct Ophthalmoscopy: No no photophobia Neck Neck: Yes no lymphadenopathy, No tender and Yes no JVD Thyroid: Thyroid normal Carotids: no bruits Chest Chest palpation & inspection: no tenderness Resp Effort & Inspection: normal respiratory effort, no audible wheezes, not labored and no stridor Auscultation: no crackles, no rales, no rhonchi and no wheezes Cardio Jugular venous distension: no JVD Rate: regular rate, not bradycardic and not tachycardic Rhythm: regular rhythm Bruits: no carotid bruits Peripheral pulses: Peripheral pulses 2+ throughout GI Inspection: Yes normal to inspection, No abdominal wall ecchymosis and No visible herniation Palpation (GI): Soft to palpation, nontender, no guarding, not rigid and No hepatosplenomegaly present Auscultation: normoactive bowel sounds General: Yes no CVA tenderness Back/Spine/Pelvis Back: no CVA tenderness and No back tenderness Cervical Spine: cervical ROM normal Thoracic/Lumbar Spine: thoracic and lumbar spine normal to inspection, straight leg raise negative bilaterally, No thoraco-lumbar ROM limited and No lumbar spinal tenderness Skin Lesions: no lesions Rashes: no rashes Wounds: no wounds Neuro General: oriented to person, oriented to place, patient oriented x3, CN's II-XI intact bilaterally and No confusion Cranial nerves: Yes Equal, round and reactive pupils present and Yes Normal accommodation reflex present Cognition (Neuro): normal cognition Speech: No Abnormal speech present Gait exam (Neuro): Normal gait present Motor exam (neuro): 5/5 motor strength present throughout Extrem Right upper extremity: full ROM; no cyanosis Left upper extremity: full ROM; no cyanosis Right lower extremity: no edema Left lower extremity: no edema Psych Appearance: grossly normal Mental Status: mental status grossly normal Affect: normal affect Attitude: cooperative Thought process: Normal thought process present Coding Level of Care Code Est Pt Prev Care 18-39y([id number]) Diagnoses Annual physical exam Z00.00 Type 2 diabetes mellitus with hyperglycemia, without long-term current use of insulin E11.65 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: without regional intermodal truck driver use Diabetes mellitus complication status: with hyperglycemia Essential hypertension I10 Hypertension type: essential hypertension MDD (major depressive disorder), recurrent episode, moderate F33.1 Additional Codes PHQ-9 - 19261 - PHQ-9 Billing: Yes ([id number]) SAMMY-7 Assessment Billing - SAMMY-7 Assessment Tool: SAMMY-7 Assessment 08039 ([id number]) Assessment & Plan Assessment & Plan (1) Annual physical exam: Code(s): Z00.00 - Encounter for general adult medical examination without abnormal findings Category: Medical Plan: As per HPI (2) Type 2 diabetes mellitus: Comment: See note Code(s): E11.9 - Type 2 diabetes mellitus without complications Category: Medical Qualifiers: 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 She is now off of all oral antihyperglycemic medication. She will continue to control her type 2 diabetes with diet and exercise. Goal A1c is to remain below 6.5 (3) HTN (hypertension): Comment: Patient is on losartan/hydrochlorothiazide, see note... Code(s): I10 - Essential (primary) hypertension Category: Medical Qualifiers: Hypertension type: essential hypertension Qualified Code(s): I10 - Essential (primary) hypertension Plan: Patient's blood pressure acceptable today in office. She continues on losartan hydrochlorothiazide with good effect. . Advised to monitor blood pressure at home with goal blood pressure to be below 140/90 (4) MDD (major depressive disorder), recurrent episode, moderate: Code(s): F33.1 - Major depressive disorder, recurrent, moderate Category: Medical Plan: Patient has a history of depression though has been a lot better lately. Not interested in mental health therapy or mental health medication at this time. She is now newly engage has a of the summer in his happy. Orders: Orders XR lumbar spine 4V min Today M54.50 - Low back pain, unspecified Microalbumin, Random (w Creat) Today E11.65 - Type 2 diabetes mellitus with hyperglycemia PT Evaluation and Treatment Today M54.50 - Low back pain, unspecified Complete Blood Count no Diff Today I10 - Essential (primary) hypertension Comprehensive [place]. Panel Fast Today I10 - Essential (primary) hypertension Hemoglobin A1c Today E11.65 - Type 2 diabetes mellitus with hyperglycemia Lipid Panel Today E11.65 - Type 2 diabetes mellitus with hyperglycemia Medications: New baclofen 10 mg PO DAILY 14 tabs 0RF 14 days M54.50 - Low back pain, unspecified Refilled losartan-hydrochlorothiazide 50-12.5 mg 1 tab PO DAILY 90 tabs 1RF 90 days I10 - Essential (primary) hypertension Patient Instructions: Goal: A1c to remain below 7.0, blood pressure to remain below 140/90 Barriers: Adherence to physical activity and healthy eating habits
[2024-11-13 09:02] VITALS: BP 110/72; PULSE 77; TEMP 36.2; O2SAT 99; BMI 23.9
--- OUTSIDE RECORDS SUMMARY | 2024-11-13 10:11 | XMS_ITS | Clinical Summary ---
Author Organization [facility] Address [address] [place] [address] Phone Care Team Providers Care English Lecturer Name Role Phone Mario Mack Primary Care [...] (2 - Td or Tdap) 04/11/2031 04/11/2021 RSV Immunization Adult Patients (1 - 1-dose 75+ series) 01/30/2063 Pneumococcal Vaccine: Pediatrics (0 to 5 Years) [...] patient's age to complete this topic Insurance [facility] Care Teams English Lecturer Relationship Specialty Start Date End Date Mario Mack PA PCP - General Physician Shrimp Trawler Captain 01/28/24
== END 2024-11-13 09:33 | disposition home or self-care (01) ==
LOC: HO.HMCH 08:54
PROVIDERS: PCP Physician Assistant; Visit Provider Physician Assistant
DX: Z00.00 Encounter for general adult medical examination without abnormal findings (principal); E11.65 Type 2 diabetes mellitus with hyperglycemia; I10 Essential (primary) hypertension; F33.1 Major depressive disorder, recurrent, moderate

== ENCOUNTER → 2024-11-13 08:54 | Outpatient (BNVA) | payer OTHER, SELFPAY | PROVIDERS: PCP Physician Assistant; Visit Provider Physician Assistant | DX: Z00.00 Encounter for general adult medical examination without abnormal findings (principal); E11.9 Type 2 diabetes mellitus without complications; I10 Essential (primary) hypertension; E11.65 Type 2 diabetes mellitus with hyperglycemia; F33.1 Major depressive disorder, recurrent, moderate; M54.50 Low back pain, unspecified | CPT/HCPCS: 96127; 99395 ==

== ENCOUNTER 2025-01-13 15:39 | Outpatient (REF) | payer OTHER, SELFPAY ==
[2025-01-13 17:52] LABS: Appearance Urine Clear; Glucose Urine UA Negative (Negative); PH 6.5 (5.0-9.0); Specific Gravity - Urine 1.020 (1.005-1.025); UMIC TRIGGER UACC YES
[2025-01-13 18:04] LABS: UACC Culture Trigger YES
--- OUTSIDE RECORDS SUMMARY | 2025-01-14 13:34 | XMS_ITS | Clinical Summary ---
Author Organization [facility] Address [address] [place] [address] Phone Care Team Providers Care Service Unit Operator Oil [employer] Name Role Phone Mario Mack Primary Care [...] Cervical Cancer Screening: P ap Smear 01/30/2009 HPV Vaccines (1 - 3-dose SCD M series) 01/30/2015 HIV Screening 12/25/2023 Hepatitis C Screening 12/25/2023 [...] patient's age to complete this topic Insurance [facility] Care Teams Service Unit Operator Oil [employer] Relationship Specialty Start Date End Date Mario Mack PA PCP - General Physician Button Sewer 01/28/24
== END 2025-01-13 15:40 | disposition home or self-care (01) ==
LOC: HO.LNP 15:39
PROVIDERS: PCP Physician Assistant; Visit Provider Student in an Organized Health Care Education/Training Program
DX: R35.0 Frequency of micturition (principal); Z78.9 Other specified health status; Z79.899 Other long term (current) drug therapy
CPT/HCPCS: 81001; 87086; 87088; 87186